=== PATIENT | female | born 1955 | race Caucasian/White ===

== ENCOUNTER 2018-03-10 22:30 | Inpatient (IN) ==
[2018-03-10] MEDS ORDERED: NS 1,000 ML IV ONE (22:53)
[2018-03-10] MEDS ORDERED: ZOFRAN IV ONE (23:24)
[2018-03-10] MEDS ORDERED: PROTONIX IV ONE (23:24)
[2018-03-10] MEDS ORDERED: SODIUM CHLORIDE 0.9% INJ ONE (23:24)
[2018-03-10 23:40] LABS: BASO# 0.17 X1000 (0.0-0.2); BASO% 1.2 % (0.0-0.8); EOS# 0.21 X1000 (0.0-0.7); EOS% 1.5 % (0.0-10.0); HEMATOCRIT 31.3 % (37.0-47.0); HEMOGLOBIN 9.8 g/dL (12.0-16.0); IMM GRAN% 0.7 % (0.0-0.5); LYMPH# 2.79 X1000 (1.2-3.4); LYMPH% 19.7 % (20.5-51.1); MCH 30.2 PG (27-31); MCHC 31.3 g/dL (33-37); MCV 96.3 FL (81-99); MONO# 0.64 X1000 (0.11-0.59); MONO% 4.5 % (1.7-9.3); MPV 10.1 FL (7.4-10.4); NEUT# 10.28 X1000 (1.4-6.5); NEUT% 72.4 % (42.2-75.2); PLT 414 X1000 (130-400); RBC 3.25 XMIL (4.2-5.4); RDW 14.9 % (11.5-14.5); WBC 14.19 X1000 (4.8-10.8)
[2018-03-10 23:48] LABS: INR 1.02; PROTIME 14.2 Seconds (11.0-16.0)
[2018-03-10 23:57] LABS: AGAP 16; ALB/GLOB RATIO 1.9; ALBUMIN 3.7 g/dL (3.5-5.0); ALKALINE PHOSPHATASE 66 U/L (32-104); BUN 35 mg/dL (8-22); CALCIUM 9.1 mg/dL (8.8-10.2); CHLORIDE 103 mmol/L (98-107); COSMO 291; ESTIMATED GFR 56; GLUCOSE 168 mg/dL (70-104); GOT 10 U/L (10-30); GPT 5 U/L (10-36); POTASSIUM 4.3 mmol/L (3.5-5.1); SODIUM 140 mmol/L (136-145); TCO2 21 mmol/L (25-35); TOTAL BILIRUBIN < 0.15 mg/dL (0.20-1.00); TOTAL PROTEIN 5.7 g/dL (6.3-8.3)
[2018-03-11] MEDS ORDERED: NS 1,000 ML IV ONE (00:57)
[2018-03-11] MEDS ORDERED: FENTANYL IV ONE (01:31)
[2018-03-11] MEDS ORDERED: PROTONIX 80 MG in NS 80 ML IV ONE (01:58)
[2018-03-11] MEDS ORDERED: MORPHINE IV PRN (01:59)
[2018-03-11] MEDS ORDERED: NS 1,000 ML IV SCH ×2 (02:00→14:15)
[2018-03-11 02:40] LABS: URINE SOURCE CLEAN CATCH
[2018-03-11] MEDS: PROTONIX 80 MG in NS 80 ML IV SCH ×2 (02:40→03:41)
[2018-03-11 02:43] LABS: BILIRUBIN URINE NEGATIVE (NEGATIVE); BLOOD URINE SMALL (NEGATIVE); COLOR YELLOW; GLUCOSE URINE NEGATIVE (NEGATIVE); KETONE URINE 10 mg/dL (NEGATIVE); LEUKOCYTES URINE NEGATIVE (NEGATIVE); NITRITE URINE NEGATIVE (NEGATIVE); PROTEIN URINE TRACE mg/dL (NEGATIVE); SP GRAVITY URINE > 1.050; TURBIDITY URINE CLEAR (CLEAR); UR EPITHELIAL CELLS <10 /HPF (<10); URINE BACTERIA NEGATIVE /HPF; URINE RBC <10 /HPF (<10); URINE WBC <10 /HPF (<10); UROBILINOGEN URINE NORMAL (NORMAL)
--- NOTE | 2018-03-11 02:56 | HISTORY AND PHYSICAL ---
PRESENTING COMPLAINT: Vomiting blood. HISTORY OF PRESENTING COMPLAINT: Ms. Valentin is a 62-year-old, female who is medically disabled because of severe scoliosis and chronic pain, also dyslipidemia. Follows up with Dr. Cliff Prakash. The patient refers that for the past week, she has been having some nausea and vomiting associated with right-sided abdominal pain. She went to [facility] where she was told that she had some kidney stones. She had some small kidney stones. She was given Septra and pain medication, and sent home. According to Ms. Valentin, the pain has been better but every now and then, she continues to have some nausea and vomiting. In any case, yesterday, she went to use the restroom and she felt a sharp pain in the abdomen, more so to the right side, right flank. She thought it was all related to the kidney stone. However, after she passed the stool, she saw that the content was dark, tarry black stool. She called her who came to help her to go and sit down. She felt extremely weak. Then she started vomiting some dark coffee-grounds as well. She came to the emergency department where she was evaluated. She vomited one more here in the emergency room and it was documented to be dark coffee-grounds. Upon presentation, the patient's vitals, blood pressure was 109/73, pulse was about 120, respirations are 18. We were consulted for GI bleed for admission. PAST MEDICAL HISTORY: 1. Severe scoliosis. 2. Chronic pain syndrome. 3. Anxiety. 4. Dyslipidemia. PAST SURGICAL HISTORY: 1. Two surgeries. 2. Benign cyst removed from the chin. SOCIAL HISTORY: The patient is positive for more than 30 year pack history of tobacco use. Denied alcohol or illicit drug use. Patient lives with and is currently disabled. FAMILY HISTORY: Positive for myocardial infarction in both mother's and father's side. ALLERGIES: None. HOME MEDICATIONS: The patient's home medications have also been reviewed. She is on: 1. Simvastatin 40 mg p.o. at bedtime. 2. Paroxetine 20 mg daily. 3. Carisoprodol 350 p.o. daily. 4. Ivins 5 mg q.6 hourly p.r.n. 5. Bactrim. REVIEW OF SYSTEMS: A 14 point review of systems was conducted with Ms. Valentin and is unremarkable except what we have in the HPI. Specifically, Ms. Valentin denies any chest pain. No shortness of breath. No fever. PHYSICAL EXAMINATION: CURRENT VITAL SIGNS: Blood pressure is 125/87, pulse is 130, respirations are 25, temperature is 98.1 degrees, patient was saturating 96%. GENERAL: Ms. Valentin is a 62-year-old, female. She was in bed. She seems to be in mild painful distress. HEENT: Mucosa is pink and moist. Anicteric. Acyanotic. NECK: Supple. There was no JVD. No carotid bruit. Trachea was midline. There is no thyromegaly. RESPIRATORY SYSTEM: There is good air entry bilaterally. No crepitations. No rhonchi. There is no accessory muscle use. CARDIOVASCULAR: Tachycardic but no murmurs, no rubs, no gallops. [place]opy beat is at 5th intercostal space, midclavicular line. GI: Abdomen is soft. It is tender in the mid epigastrium. There was no rebound tenderness. There is an old infraumbilical surgical scar. Bowel sounds are present. : Unremarkable. EXTREMITIES: No pedal edema. Distal pulses present. 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 Executive function seems to be fairly intact. The patient is able to move all extremities. Power is 5/5. No sensation deficit. Cranial nerves 2- 12 have been grossly examined and unremarkable. Head is normocephalic and atraumatic. LABORATORY DATA: WBC is 14.19, hemoglobin is 9.8, platelet count of 414,000. Sodium is 140, potassium is 4.3, chloride is 103, bicarb is 21, creatinine is 1.0, BUN is 35. Preliminary report on the CT scan shows no acute process. ASSESSMENT: 1. Coffee-grounds emesis with melenic stool, consistent with gastrointestinal bleed, unsure of the etiology. We are going to admit the patient, adequately hydrate her, follow her hemoglobin and hematocrit, group and crossmatch and transfuse when necessary. Put the patient on a proton pump inhibitor drip for now and get a gastroenterology consult to see her in the morning. 2. Recently treated urinary tract infection. Patient is currently not having any symptoms. I would rather hold off on antibiotics for now. 3. Clinical volume depletion. We will continue adequate hydration. 4. History of severe scoliosis, noted. 5. Chronic pain syndrome. We will start the patient on her home medications. 6. Dyslipidemia, noted. PLAN: In general, Ms. Valentin is going to be admitted mainly for a GI bleed. She is going to be grouped and crossmatched. Adequately hydrate. Transfuse when necessary. We are going to follow her hemoglobin and hematocrit. Put a PPI drip on her and consult GI. We will await for the official report on the CT scan and give further recommendations during the hospital course. cc: Anthony Mirza MD
[2018-03-11 03:20] LABS: HEMATOCRIT 24.7 % (37.0-47.0); HEMOGLOBIN 7.6 g/dL (12.0-16.0)
--- NOTE | 2018-03-11 06:56 | Diag Imaging Result Doc PS360 ---
CT ABD/PELVIS W/IV CONT ONLY - 03/10/2018 INDICATION: appendicitis, colitis COMPARISON: None FINDINGS: There is rather severe patient motion artifact. The lung bases are clear and the heart size is normal. There is severe rotary scoliosis and dextroscoliosis of the spine. There is severe degeneration throughout the spine. No bowel obstruction or inflammation. No free air or free fluid. There are bilateral renal cysts. Otherwise solid organs are normal. There is moderately extensive vascular disease of the aorta and its pelvic branches. Urinary bladder, uterus, and rectum are normal. IMPRESSION: No acute process. This exam was performed using automated exposure control, adjustment of mA or kV according to patient size, and/or use of iterative reconstruction technique Electronically signed by Luca Wen 03/11/2018 6:54 AM
[2018-03-11 08:27] LABS: HEMATOCRIT 31.9 % (37.0-47.0); HEMOGLOBIN 9.9 g/dL (12.0-16.0)
[2018-03-11] MEDS: ZOFRAN IV PRN ×2 (08:27→10:56)
[2018-03-11] MEDS ORDERED: XYLOCAINE-MPF 2% ONE (09:27)
[2018-03-11] MEDS ORDERED: DIPRIVAN 1% ONE ×2 (09:27→09:42)
[2018-03-11] MEDS: ATROVENT NEB INH SCH ×5 (09:33→23:55)
[2018-03-11] MEDS ORDERED: EPINEPHRINE SYRINGE ONE (09:42)
[2018-03-11] MEDS ORDERED: FENTANYL ONE (09:55)
--- NOTE | 2018-03-11 10:11 | GASTROENTEROLOGY CONSULTATION ---
DATE: 03/11/2018 REASON FOR CONSULTATION: Hematemesis with coffee ground emesis, melena. HISTORY OF PRESENT ILLNESS: Ms. Lelo Valentin is a 62-year-old woman with a history of severe scoliosis and chronic cervical and back pain, hyperlipidemia and GERD who presents with 1 day history of coffee ground emesis and melenic stools. The patient reports developing nausea about a week ago as well as constipation and right-sided abdominal pain. She was seen in the ER in [place], diagnosed with kidney stones, and discharged lomotil, zofran, and on a course of Bactrim. Over the last 2 days, she had worsening of her right-sided abdominal pain that she described as being severe. Yesterday, she developed a stool that she describes as being "grape colored in nature" and began vomiting coffee grounds. She denies a history of similar symptoms. She is not currently on any blood thinners although she takes Goody powders regularly to control her headaches associated with her pain medication. No prior EGD or colonoscopy. She takes Prilosec a couple of times a week for GERD. REVIEW OF SYSTEMS: As per HPI. Twelve point review of systems was otherwise negative. PAST MEDICAL HISTORY: 1. Scoliosis. 2. Hyperlipidemia. 3. GERD. 4. Chronic cervical and back pain. PAST SURGICAL HISTORY: 1. Right femur repair in 2018. 2. She has had 2 C-sections in the past. FAMILY HISTORY: She reports that her grandmother and mother both have stomach issues. SOCIAL HISTORY: She is a 1/2 pack per day smoker. No alcohol or drug use. MEDICATIONS: 1. [place]. 2. Zofran. 3. Simvastatin. 4. Paxil. 5. Soma. 6. Bactrim. 7. Lomotil. ALLERGIES: Morphine. PHYSICAL EXAMINATION: VITAL SIGNS: Temperature 99.3 degrees, heart rate 112, respiratory rate 22, blood pressure 98/72. O2 saturation 94% on room air. GENERAL: The patient is awake, alert, oriented, no acute distress. Appears older than stated age. HEENT: Sclerae anicteric. Moist mucous membranes. NECK: No JVD. No lymphadenopathy. CARDIAC: Tachycardic, regular, no murmurs. LUNGS: Clear to auscultation bilaterally. No wheezing or crackles. ABDOMEN: Nondistended. Bowel sounds present. Tender to palpation along the right side of her abdomen that is moderate in nature. No rebound or guarding. No ascites. EXTREMITIES: No clubbing, cyanosis or edema. NEUROLOGICAL: Nonfocal. PSYCHIATRIC: Normal affect. LABS: White count 14.1, hemoglobin of 7.6 that has come up to 9.9 after 2 units of packed red blood cells. Platelets of 414,000. INR of 1. Sodium 140, potassium 4.3, chloride 103, bicarb 24, BUN 35, creatinine 1.0, glucose 168. Albumin 3.7. Total bilirubin of less than 0.15. AST 10, ALT 5, alkaline phosphatase 66. UA shows ketones and a small amount of blood and protein. IMAGING: CT abdomen and pelvis with IV contrast only was unremarkable. ASSESSMENT AND PLAN: Ms. Valentin is a 62-year-old woman with a history of scoliosis and chronic pain who presents with coffee ground emesis and melena consistent with upper GI bleeding in the setting of chronic aspirin use. Her hemoglobin responded to transfusion and she is currently on a PPI drip. She is tachycardic but normotensive. Her labs are notable for a hemoglobin of 9.9 after transfusion, elevated BUN to creatinine ratio. CT abdomen and pelvis was unremarkable. 1. Upper GI bleed, suspect duodenal ulcer. Differential includes duodenitis, esophagitis, gastritis. Keep patient NPO for diagnostic EGD today. Continue PPI drip for now. Maintain 2 large bore IVs. Continue fluid resuscitation. 2. Abdominal pain. Patient recently diagnosed with UTI as well as kidney stones. I suspect her abdominal pain is likely from her GI process since UA was negative for infection. She does have some leukocytosis which could be reactive in the setting of GI bleed. 3. Hyperglycemia. Patient has no known history of diabetes. Recommend checking A1c and putting patient on sliding scale insulin. 4. DVT prophylaxis. TEDs and SCDs. Hold SQ Lovenox or heparin. Thank you for this consult. We will follow with you. Please call with any questions or concerns. [facility] HOSPITALMelisa
--- NOTE | 2018-03-11 10:20 | PROGRESS NOTE ---
DATE: 03/11/2018 INTERVAL HISTORY: Ms. Valentin was admitted overnight with complaints of hematemesis, melena, nausea and vomiting for 7 days duration, with right upper quadrant pain, recent diagnosis of urinary tract infection treated with Bactrim, and recent diagnosis of nephrolithiasis. In the emergency room, she had another episode of hematemesis with gastric and stool occult blood test being positive. She was found to be extremely tachycardic and dehydrated, and started on Protonix drip. SUBJECTIVE: She is feeling fair. She continues to have nausea and wants nausea medication. She states occasionally she might take a Goody Powder or Aleve. She might have taken about 2 tablets of that over the last week or so, but denies using NSAIDs on an [id number] basis. She also admits to smoking about a half pack a day. Denies drinking alcohol. Denies prior history of peptic ulcer disease. OBJECTIVE: Vital Signs: Currently, vitals with pulse 112, respiratory rate 22, blood pressure 98/72, temperature 99.3, saturating 95% on room air. General: Appears in mild distress. HEENT: Oral cavity has poor dentition. Lungs: Air entry bilaterally equal. No wheeze, rhonchi, or crackles. Heart: S1, S2 tachycardic. No murmur, rub, or gallop. Abdomen: Soft. Tenderness in the epigastric/right upper quadrant region. Active bowel sounds. Extremities: No lower extremity edema. Dryness of the skin. Neurologic: She appears tremulous, but alert and oriented x3. LABORATORY DATA: Labs suggestive of leukocytosis. Hemoglobin dropped from 9.8 to 7.6, which after 2 PRBCs increased to 9.9 again. Normal coagulation. Acute kidney injury. Hyperglycemia. IMAGING: Abdomen and pelvis CT did not detect any intra-abdominal free air or nephrolithiasis. ASSESSMENT AND PLAN: 1. Hematemesis and melena, likely due to upper gastrointestinal bleed. Differential includes esophageal tear because of persistent nausea and vomiting, because of nephrolithiasis versus peptic ulcer disease. She is a smoker, which is a risk factor of peptic ulcer disease. She denies alcohol use and she only occasionally uses nonsteroidal anti-inflammatory drugs. Continue intravenous fluid resuscitation and pantoprazole drip. Follow up Gastroenterology recommendation and consult regarding need for esophagogastroduodenoscopy considering she continues to have drop in her hemoglobin. Follow up with frequent CBC and transfuse to maintain hemoglobin more than 7. 2. Acute blood-loss anemia. She is now status post 2 units of packed red blood cells. Monitor CBC q.6 to q.8 hours. Transfuse to goal of more than 7. 3. Leukocytosis, likely reactive in the setting of blood loss. Monitor CBC daily. No need of antibiotics. 4. Acute kidney injury, likely because of volume depletion and prerenal cause. Continue intravenous fluids. Follow up BMP tomorrow. 5. Recently treated urinary tract infection with repeat urinalysis that does not suggest pyuria. 6. History of severe scoliosis and chronic pain syndrome. Continue patient on morphine intravenous as needed and will restart other home medications as necessary. 7. History of dyslipidemia. I will resume her simvastatin. 8. Others. I will resume her paroxetine and muscle relaxant, carisoprodol and hydrocodone/acetaminophen as tolerated. DISPOSITION: The patient remains inside the hospital for need for upper endoscopy for hematemesis. Plan of care was discussed with the patient and her at bedside, who is the surrogate decision-maker. All of their questions have been answered. cc: Mayo Liang MD
--- NOTE | 2018-03-11 10:29 | OPERATIVE NOTE ---
PROCEDURE DATE : 03/11/2018 PROCEDURE: Upper gastrointestinal endoscopy. PROVIDER: Nghia Mckenna MD. INDICATIONS: Hematemesis, melena, upper GI bleeding. DESCRIPTION OF PROCEDURE: Prior to the procedure, a history and physical was performed, and patient's medications and allergies were reviewed. The patient's tolerance to previous anesthesia was also reviewed. The risks and benefits of the procedure and the sedation options and risks were discussed with the patient. All questions were answered and informed consent was obtained. After reviewing the risks and benefits, the patient was deemed to be in satisfactory condition to undergo the procedure. After informed consent was obtained, the endoscope was passed under direct visualization. Throughout the procedure, the patient's blood pressure, pulse, and oxygen saturations were monitored continuously. The endoscope was introduced through the mouth and advanced to the second part of the duodenum. The upper GI endoscopy was accomplished without difficulty. The patient tolerated the procedure well. COMPLICATIONS: No immediate complications. ESTIMATED BLOOD LOSS: Minimal. FINDINGS: There was a nonobstructing Schatzki ring found at the distal esophagus, as well as a small hiatal hernia. Stomach revealed two 5 mm cratered ulcers that were clean base in the antrum. Random gastric biopsies were performed to rule out H. pylori. In the distal duodenum, there were two 1.5 cm cratered ulcers. One was clean base anteriorly. The other revealed a pigmented spot with minimal oozing of blood on the posterior wall. Two milliliters of epinephrine diluted 1:10,000 was injected submucosally with good blanching of the mucosa. Monopolar probe cautery was applied to the spot to control bleeding. There was no bleeding at the end of the procedure. IMPRESSION: 1. Nonobstructing Schatzki ring. 2. Small hiatal hernia. 3. Gastric antral ulcers. 4. Duodenal ulcers. 5. Her upper GI bleed and peptic ulcer disease are likely secondary to chronic NSAID use. RECOMMENDATIONS: 1. Transition PPI drip to pantoprazole 40 mg IV twice a day. 2. Start patient on clear liquid diet. 3. Continue to trend hemoglobin and hematocrit q.6-8 h. Transfuse as needed to maintain a hemoglobin to 7 to 8. 4. Avoid all NSAIDs, blood thinners, and subcutaneous heparin/Lovenox. 5. Await pathology results 6. The patient will need a repeat EGD in 2 months to assess ulcer healing. We will follow with you. Please call with any questions or concerns. MTDD
[2018-03-11] MEDS: PROTONIX IV SCH ×2 (10:38→22:09)
[2018-03-11] MEDS: NORCO-5 PO PRN ×3 (11:18→22:51)
[2018-03-11 14:32] LABS: HEMATOCRIT 27.7 % (37.0-47.0); HEMOGLOBIN 8.8 g/dL (12.0-16.0)
[2018-03-11 20:32] LABS: HEMATOCRIT 27.5 % (37.0-47.0); HEMOGLOBIN 8.7 g/dL (12.0-16.0)
[2018-03-11] MEDS: ZOCOR PO SCH (20:47)
[2018-03-12] MEDS: ATROVENT NEB INH SCH ×6 (03:35→23:40)
[2018-03-12] MEDS: NORCO-5 PO PRN ×4 (05:00→23:31)
[2018-03-12 05:26] LABS: INR 1.06; PROTIME 14.7 Seconds (11.0-16.0)
[2018-03-12 05:49] LABS: AGAP 9; ALB/GLOB RATIO 1.9; ALBUMIN 2.8 g/dL (3.5-5.0); ALKALINE PHOSPHATASE 47 U/L (32-104); BUN 11 mg/dL (8-22); CHLORIDE 108 mmol/L (98-107); COSMO 279; CREATININE 0.5 mg/dL (0.5-0.9); ESTIMATED GFR > 60; GLUCOSE 110 mg/dL (70-104); GOT 8 U/L (10-30); GPT < 5 U/L (10-36); MAGNESIUM 1.6 mg/dL (1.5-2.7); POTASSIUM 3.2 mmol/L (3.5-5.1); SODIUM 140 mmol/L (136-145); TCO2 23 mmol/L (25-35); TOTAL PROTEIN 4.3 g/dL (6.3-8.3)
[2018-03-12 06:25] LABS: BASO# 0.04 X1000 (0.0-0.2); BASO% 0.6 % (0.0-0.8); EOS# 0.09 X1000 (0.0-0.7); EOS% 1.3 % (0.0-10.0); HEMATOCRIT 25.2 % (37.0-47.0); HEMOGLOBIN 7.8 g/dL (12.0-16.0); IMM GRAN# 0.02 X1000 (0.0-0.04); IMM GRAN% 0.3 % (0.0-0.5); LYMPH# 2.34 X1000 (1.2-3.4); LYMPH% 33.1 % (20.5-51.1); MCH 29.2 PG (27-31); MCV 94.4 FL (81-99); MONO# 0.43 X1000 (0.11-0.59); MONO% 6.1 % (1.7-9.3); MPV 9.5 FL (7.4-10.4); NEUT# 4.14 X1000 (1.4-6.5); NEUT% 58.6 % (42.2-75.2); PLT 220 X1000 (130-400); RBC 2.67 XMIL (4.2-5.4); RDW 15.7 % (11.5-14.5); WBC 7.06 X1000 (4.8-10.8)
[2018-03-12] MEDS: PROTONIX IV SCH ×2 (09:47→20:07)
[2018-03-12] MEDS: CENTRUM SILVER PO SCH (09:48)
[2018-03-12] MEDS: ICAR-C PO SCH ×2 (09:48→20:07)
[2018-03-12] MEDS ORDERED: POTASSIUM CHLORIDE 20% LIQUID PO ONE (10:07)
[2018-03-12] MEDS ORDERED: SOMA PO PRN (10:36)
[2018-03-12] MEDS: PAXIL PO SCH (11:11)
[2018-03-12] MEDS: ZOFRAN IV PRN (12:14)
[2018-03-12 12:28] LABS: HEMATOCRIT 28.8 % (37.0-47.0); HEMOGLOBIN 9.1 g/dL (12.0-16.0)
--- NOTE | 2018-03-12 13:36 | GASTROENTEROLOGY PROGRESS NOTE ---
DATE: 03/12/2018 SUBJECTIVE: Resting in bed. She has been having some dark stools overnight 2 small bouts of dark stools per the patient and family. The patient had an EGD done per Dr. Mckenna which showed evidence of nonobstructing Schatzki ring, small hiatal hernia, gastric antral ulcers, duodenal ulcers. The patient has a history of chronic NSAID abuse. She continues on PPIs. OBJECTIVE: Vital signs: Temperature 98.3 degrees, pulse of 98, respiratory rate 16, blood pressure 115/57. Saturating 92% on room air. Body weight of 130 pounds. BMI 22.3 kg. General: Thinly built, lying in bed, in no acute distress. HEENT: Pale conjunctiva. No icterus. Pupils equal, reactive to light. Neck: Supple. Abdomen: Discomfort in the epigastrium. No rebound or guarding. Extremities: No cyanosis, clubbing. Neurologic: She is alert, awake, oriented x3. LABS: Hemoglobin and hematocrit is 7.8, 25.2, white count of 7.06, platelet count of 220,000. Sodium 140, potassium 3.2 chloride 108, bicarb 23, anion gap 9, BUN of 11, creatinine 0.5, glucose 110, calcium is 8, magnesium 1.6. Total bilirubin is 0.2, AST 8, ALT less than 5, alkaline phosphatase 47, total protein 4.3, albumin of 2.8. INR 1.06. PT of 14.7. Lactate of 0.6. Her blood cultures were drawn yesterday. They are currently pending. Her gastric biopsies are currently pending. IMPRESSION AND PLAN: 1. Gastric antral ulcer, duodenal ulcers likely cause of gastrointestinal bleeding. We will keep her on proton pump inhibitors b.i.d. We will also start on Carafate 1 g 6 hours. 2. The patient was instructed to avoid any NSAIDs. 3. Anemia. We will start her on iron C b.i.d., multivitamin once daily. 4. We will follow her hematocrit and transfuse as needed. 5. We will keep her on clear liquid diet for now until hematocrit stabilizes. 6. Chronic smoker. The patient is counseled to quit smoking completely. Above plan discussed with the patient and family and all questions answered. Please call us with any further questions. cc: MD TEQUILA Wong
[2018-03-12] MEDS: CARAFATE LIQUID PO SCH ×2 (14:09→20:07)
--- NOTE | 2018-03-12 14:21 | PROGRESS NOTE ---
DATE: 03/12/2018 SUBJECTIVE: This patient states that she is feeling a little bit better but she is complaining of back pain which is not new. Her potassium level is low and I will replace it. I will monitor hemoglobin and hematocrit every 6 hours. She is status post upper endoscopy. Will continue following the automatic silk screen printer's recommendations. OBJECTIVE: Vital Signs: Temperature 98.4 degrees, pulse 74, respiratory rate 18, blood pressure 160/66, oxygen saturation 97% on room air. HEENT: Head normocephalic. No trauma. PERRLA. Neck: Supple. No JVD. No masses. Central trachea. Chest: Clear to auscultation. No wheezing. No rales. Abdomen: Soft. Some tenderness to palpation at the level of the periumbilical area and epigastric area. Positive bowel sounds. Extremities: No edema. No clubbing. No cyanosis. Neurological: The patient is alert and oriented x3. No focal deficits. LABORATORY: WBC 7, hemoglobin 9.1, hematocrit 28.8, platelets 220,000. Sodium 140, potassium 3.2, chloride 108, bicarbonate 23, BUN 11, creatinine 0.5, glucose 110, calcium 8, albumin 2.8. ASSESSMENT AND PLAN: 1. Upper gastrointestinal bleed, likely secondary to gastric antral ulcers and duodenal ulcers which we believe is probably due to her chronic NSAID use. Also upper endoscopy showed a nonobstructing Schatzki ring, small hiatal hernia. Will continue with PPI twice a day. Continue with liquid diet. Continue monitoring the hemoglobin and hematocrit. We will avoid NSAIDs, anticoagulation. Likely this patient will need to repeat the EGD in 2 months to evaluate the gastric ulcer progression and healing. 2. Acute blood loss anemia. So far this patient received 2 units of PRBCs. Hemoglobin at this moment is 9.1. We will continue to monitor closely, every 6 hours. 3. Acute kidney injury. Resolved. 4. Recently treated due to urinary tract infection. No symptoms at this moment. 5. History of severe scoliosis and chronic pain syndrome. Continue with home medications. 6. History of dyslipidemia. Continue with simvastatin. cc: Melvin Gonzalez MD
[2018-03-12 18:03] LABS: HEMATOCRIT 28.2 % (37.0-47.0); HEMOGLOBIN 8.8 g/dL (12.0-16.0)
[2018-03-12] MEDS: ZOCOR PO SCH (20:07)
[2018-03-12] MEDS ORDERED: AMBIEN PO SCH (21:00)
[2018-03-13 00:48] LABS: HEMATOCRIT 26.7 % (37.0-47.0); HEMOGLOBIN 8.4 g/dL (12.0-16.0)
[2018-03-13] MEDS: ATROVENT NEB INH SCH ×3 (03:35→11:12)
[2018-03-13] MEDS: CARAFATE LIQUID PO SCH ×3 (03:59→14:01)
[2018-03-13] MEDS: NORCO-5 PO PRN ×2 (05:32→11:36)
[2018-03-13 06:05] LABS: BASO# 0.06 X1000 (0.0-0.2); BASO% 1.3 % (0.0-0.8); EOS# 0.14 X1000 (0.0-0.7); HEMATOCRIT 26.5 % (37.0-47.0); HEMOGLOBIN 8.2 g/dL (12.0-16.0); LYMPH# 1.72 X1000 (1.2-3.4); LYMPH% 36.4 % (20.5-51.1); MCH 29.5 PG (27-31); MCHC 30.9 g/dL (33-37); MCV 95.3 FL (81-99); MONO# 0.37 X1000 (0.11-0.59); MONO% 7.8 % (1.7-9.3); MPV 9.5 FL (7.4-10.4); NEUT# 2.43 X1000 (1.4-6.5); NEUT% 51.5 % (42.2-75.2); PLT 244 X1000 (130-400); RBC 2.78 XMIL (4.2-5.4); RDW 15.5 % (11.5-14.5); WBC 4.72 X1000 (4.8-10.8)
[2018-03-13 06:59] LABS: AGAP 9; BUN 5 mg/dL (8-22); CALCIUM 8.1 mg/dL (8.8-10.2); CHLORIDE 105 mmol/L (98-107); COSMO 281; CREATININE 0.5 mg/dL (0.5-0.9); ESTIMATED GFR > 60; GLUCOSE 103 mg/dL (70-104); POTASSIUM 3.6 mmol/L (3.5-5.1); SODIUM 142 mmol/L (136-145); TCO2 28 mmol/L (25-35)
[2018-03-13] MEDS: ICAR-C PO SCH (08:42)
[2018-03-13] MEDS: CENTRUM SILVER PO SCH (08:42)
[2018-03-13] MEDS: PAXIL PO SCH (08:42)
[2018-03-13] MEDS: PROTONIX IV SCH (08:42)
--- NOTE | 2018-03-13 10:58 | PROGRESS NOTE ---
DATE: 03/13/2018 SUBJECTIVE: The patient has no new complaints today. Hemoglobin around 8.2; decreased a little bit compared with yesterday. OBJECTIVE: Vital Signs: Temperature 98, pulse 95, respiratory rate 15, blood pressure 105/49, oxygen saturation 96% on room air. HEENT: Head normocephalic, no trauma. PERRLA. Neck: Supple. No JVD. No masses. Central trachea. Chest clear to auscultation. No wheezing. No rales. Abdomen soft, nontender, nondistended. No hepatosplenomegaly. Extremities: No edema. No clubbing. No cyanosis. Neurologic: The patient is alert and oriented x3. No focal deficits. LABORATORY: WBC 4.7, hemoglobin 8.2, hematocrit 26.5, platelets 244,000. Sodium 142, potassium 3.6, chloride 105, bicarbonate 28. BUN 5, creatinine 0.5, glucose 103. Calcium 8.1. ASSESSMENT AND PLAN: 1. Upper gastrointestinal bleed likely secondary to gastric antral ulcer and duodenal ulcers which we believe is probably due to her chronic nonsteroidal anti-inflammatory drug. Also, upper endoscopy showed a nonobstructing Schatzki ring, a small hiatal hernia. We will continue with PPIs twice a day. Continue with her liquid diet which probably will be advanced by the Gastroenterology Department. Continue to monitor hemoglobin and hematocrit. We will avoid nonsteroidal anti-inflammatory drug, anticoagulation. Likely, this patient will need to repeat an esophagogastroduodenoscopy in 2 months to evaluate the gastric ulcer progression and healing. 2. Acute blood loss anemia. So far, the patient received 2 PRBCs. Hemoglobin has been stable. Decrease a little bit compared with yesterday but will monitor these every 6 hours. 3. Acute kidney injury, resolved. 4. Recently treated due to urinary tract infection. No symptoms at this moment. 5. History of severe scoliosis and chronic pain syndrome. Continue with home medications. 6. History of dyslipidemia. Continue with simvastatin. cc: Melvin Gonzalez MD
[2018-03-13 13:09] LABS: HEMATOCRIT 27.8 % (37.0-47.0); HEMOGLOBIN 8.5 g/dL (12.0-16.0)
[2018-03-13 16:31] VITALS: BP 136/97
[2018-03-14] MEDS ORDERED: PROTONIX IV SCH (01:58)
--- NOTE | 2018-03-15 00:04 | DISCHARGE SUMMARY ---
ADMISSION DATE: 03/11/2018 DISCHARGE DATE: 03/13/2018 DISCHARGE DIAGNOSIS: 1. Upper gastrointestinal bleed likely secondary to gastric antral ulcer and duodenal ulcer is status post endoscopy. 2. Acute blood loss anemia. 3. Acute kidney injury, resolved. 4. Recently treated due to urinary tract infection. 5. History of severe scoliosis and chronic pain syndrome. 6. History of hyperlipidemia. HOSPITAL COURSE: 62-year-old female who is medically disabled because of severe scoliosis and chronic pain, dyslipidemia, anxiety admitted on 03/11/2018, apparently as per the patient for the past week prior to admission she was having nausea and vomiting as stated with right-sided abdominal pain. She went to [facility] where she was told that she had some kidney stones. She was given pain medication and then she was sent home. As per the patient, she was a little bit better but she continued to have some nausea and vomiting so the day before of admission she went to the restroom she started having sharp pain in the abdomen more so to the right side, right flank and she thought that was related to the kidney stone however after she passed the stool she saw that it was really dark tarry black stool then she started vomiting some dark coffee-ground material as well. So she came to emergency department were she was evaluated, on presentation the patient's vital signs blood pressure was 109/73 and the pulse was around 120. Gastroenterology Department was consulted and they decided to do a upper endoscopy that showed a known obstructing Schatzki ring, small hiatal hernia, gastric antral ulcers and duodenal ulcer, the upper GI bleed and ulcer disease were likely related to chronic NSAID use. Apparently she has been using also a lot of BC powders on a daily basis, they have recommended to continue PPIs twice a day, Carafate, continue liquid diet. monitor the hemoglobin and avoid NSAIDs and blood thinners, she will need to do and repeat an EGD in 2 months to evaluate again the ulcer healing especially the 1 in the stomach, the hemoglobin and hematocrit were stable. She was tolerating p.o. No more nausea or vomiting so we have decided to discharge this patient with a strict follow up by Gastroenterology Department, she needs to follow up with Dr. Herman in 3 weeks and this patient needs to get upper endoscopy done again to evaluate her gastric and duodenal ulcers. Vital signs: Temperature 98.3 degrees, pulse 97 , respiratory rate 15, blood pressure 136/97, oxygen saturation 95 on room air. HEENT: Head normocephalic. No trauma. PERRLA. Neck: Supple. No JVD. No masses. Central trachea. Chest: Clear to auscultation. No wheezing, no rales. Abdomen: Soft. Mild tenderness to palpation at the level of the epigastric area. Extremities: No edema, no clubbing, no cyanosis. Neurological: The patient is alert and oriented x3. No focal deficits. LABORATORY: WBC 4.7, hemoglobin 8.5, hematocrit 27.8, sodium 142, potassium 3.6, chloride 105, bicarbonate 28, BUN 5, creatinine 0.5, glucose 103, calcium 8.1. DISCHARGE MEDICATIONS: Simvastatin 40 mg p.o. at bedtime, paroxetine 20 mg p.o. daily, [place] 5 one tablet p.o. q.6 hours as needed, 250 mg p.o. daily, Ambien 5 mg p.o. at bedtime as needed, Carafate 1 g p.o. before meals and before bed, Pantoprazole 40 mg p.o. b.i.d., Centrum Silver 1 tablet p.o. daily and Icar-C 1 tab p.o. b.i.d. TIME SPENT: 35 minutes. cc: Melvin Gonzalez MD MTDD
== END 2018-03-13 17:29 | disposition home or self-care (01) | DRG 378 ==
LOC: ED 22:30 → EDIPHOLD 03-11 03:18 → SUATTDRO 03-11 03:18 → 3S 03-11 20:07
PROVIDERS: ATTEND Internal Medicine
CPT/HCPCS: 36430; 74177; 80048; 80053; 81001; 82270; 82271; 82948; 83605; 83735; 84443; 85014; 85018; 85025; 85610; 86850; 86900; 86901; 86920; 87040; 88305; 88312; 93005; 94640; 94760; 94761; 96374; 96375; 96376; 97110; 97162; 99285; A9270; C9113; J0171; J2270; J2405; J3010; J7030; P9016; Q9967; S0164; XXXXX

== ENCOUNTER 2019-01-26 09:09 | Inpatient (IN) ==
[2019-01-26] MEDS ORDERED: NARCAN IV ONE (09:17)
[2019-01-26] MEDS ORDERED: NS 1,000 ML IV ONE ×2 (09:17→09:37)
[2019-01-26] MEDS ORDERED: THIAMINE 100 MG in NS 50 ML IV ONE (09:17)
[2019-01-26] MEDS ORDERED: QUELICIN IV ONE (09:27)
[2019-01-26] MEDS ORDERED: AMIDATE IV ONE (09:27)
[2019-01-26] MEDS ORDERED: AMIDATE ONE (09:30)
[2019-01-26] MEDS ORDERED: QUELICIN ONE (09:31)
--- NOTE | 2019-01-26 09:31 | Diag Imaging Result Doc PS360 ---
CHEST-PORTABLE - 01/26/2019 INDICATION: stroke like symptoms COMPARISON: 02/23/2013 FINDINGS: There is some faint linear atelectasis or infiltrate in the lateral right lung base. Heart size is normal. No pneumothorax or pleural effusion. IMPRESSION: Faint nonspecific infiltrate or atelectasis in the lateral right lung base. Electronically signed by Luca Wen 01/26/2019 9:28 AM
[2019-01-26] MEDS ORDERED: ZOSYN 4.5 GM in NS 100 ML IV ONE (09:33)
[2019-01-26] MEDS ORDERED: VANCOMYCIN 1 GM/NS 1 GM/250 ML IVPB IV ONE (09:33)
--- NOTE | 2019-01-26 09:33 | Diag Imaging Result Doc PS360 ---
EXAM: CT HEAD W/O CONTRAST 01/26/2019 HISTORY: stroke like symptoms TECHNIQUE: This exam was performed using automated exposure control, adjustment of mA or kV according to patient size, and/or use of iterative reconstruction technique. COMMENT: The right maxillary sinus is opacified with apparent calcifications. This may indicate fungal sinusitis. The calvarium is intact. There is no evidence of intracranial mass effect, bleed, or abnormal extra-axial fluid collection. IMPRESSION: Right maxillary sinusitis. No evidence of acute intracranial disease. Electronically signed by Oziel Arenas 01/26/2019 9:31 AM
[2019-01-26] MEDS: DIPRIVAN 1% 1,000 MG/100 ML BOTTLE IV SCH ×4 (09:40→21:31)
[2019-01-26] MEDS ORDERED: DIPRIVAN 1% 1,000 MG/100 ML BOTTLE ONE (09:40)
[2019-01-26 09:56] LABS: ALLEN TEST YES; BE -1.8 mmoll (-3.0-3.0); BLOOD TYPE ARTERIAL; HCO3-(ACT) 23.3 mmoll (20.0-26.0); METHB 0.7 % (0.0-1.5); O2(CT) 16.7 mL/dL (15.0-23.0); O2HB 90.1 % (95.0-99.0); PCO2(98.6) 42 mmHg (35-45); PO2(98.6) 58 mmHg (60-100); SAMPLE BLOOD; SAO2 91.3 % (95.0-100.0); SRATE 16 BPM; THB 13.2 g/dL (11.5-17.4); TVOL 500 mL; pH(98.6) 7.36 (7.35-7.45)
[2019-01-26 09:57] LABS: MODALITY VENTILATOR
[2019-01-26 10:04] LABS: INR 1.17; PROTIME 15.1 Seconds (11.0-16.0)
[2019-01-26 10:05] LABS: PTT 29.6 Seconds (22.3-41.8)
[2019-01-26 10:11] LABS: URINE SOURCE CATH
[2019-01-26 10:18] LABS: AGAP 18; ALBUMIN 4.7 g/dL (3.5-5.0); ALKALINE PHOSPHATASE 109 U/L (32-104); BUN 29 mg/dL (8-22); CALCIUM 8.9 mg/dL (8.8-10.2); CHLORIDE 103 mmol/L (98-107); COSMO 295; CREATININE 1.1 mg/dL (0.5-0.9); ESTIMATED GFR 50; GLUCOSE 133 mg/dL (70-104); GOT 17 U/L (10-30); GPT 8 U/L (10-36); POTASSIUM 2.9 mmol/L (3.5-5.1); SODIUM 144 mmol/L (136-145); TCO2 23 mmol/L (25-35); TOTAL BILIRUBIN < 0.15 mg/dL (0.20-1.00)
[2019-01-26 10:20] LABS: BASO# 0.06 X1000 (0.0-0.2); BASO% 0.3 % (0.0-0.8); EOS# 0.01 X1000 (0.0-0.7); HEMATOCRIT 42.4 % (37.0-47.0); HEMOGLOBIN 12.8 g/dL (12.0-16.0); IMM GRAN# 0.04 X1000 (0.0-0.04); IMM GRAN% 0.2 % (0.0-0.5); LYMPH# 0.64 X1000 (1.2-3.4); LYMPH% 3.1 % (20.5-51.1); MCH 27.1 PG (27-31); MCHC 30.2 g/dL (33-37); MCV 89.6 FL (81-99); MONO# 0.83 X1000 (0.11-0.59); NEUT% 92.4 % (42.2-75.2); PLT 365 X1000 (130-400); RBC 4.73 XMIL (4.2-5.4); RDW 16.4 % (11.5-14.5); WBC 20.78 X1000 (4.8-10.8)
--- NOTE | 2019-01-26 10:20 | Diag Imaging Result Doc PS360 ---
CHEST-1 VIEW - 01/26/2019 10:03 AM INDICATION: ETT and NGT placement COMPARISON: 9:22 AM FINDINGS: There is an endotracheal tube in good position at T3-T4. Nasogastric tube is in good position in the stomach. The lungs are clear. Heart size is normal. No pneumothorax or pleural effusion. IMPRESSION: No acute disease or complication. Electronically signed by Luca Wen 01/26/2019 10:18 AM
[2019-01-26 10:21] LABS: BILIRUBIN URINE NEGATIVE (NEGATIVE); BLOOD URINE SMALL (NEGATIVE); COLOR YELLOW; GLUCOSE URINE NEGATIVE (NEGATIVE); KETONE URINE 20 mg/dL (NEGATIVE); LEUKOCYTES URINE NEGATIVE (NEGATIVE); NITRITE URINE NEGATIVE (NEGATIVE); PH URINE 5.5; PROTEIN URINE 50 mg/dL (NEGATIVE); SP GRAVITY URINE 1.028; TURBIDITY URINE CLEAR (CLEAR); UROBILINOGEN URINE NORMAL (NORMAL)
[2019-01-26 10:25] LABS: UR EPITHELIAL CELLS <10 /HPF (<10); URINE BACTERIA NEGATIVE /HPF; URINE RBC <10 /HPF (<10); URINE WBC <10 /HPF (<10)
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
[2019-01-26 10:41] LABS: URINE YEAST NONE SEEN
[2019-01-26] MEDS ORDERED: LASIX IV ONE (11:02)
[2019-01-26 11:09] LABS: UR AMPHETAMINES QUAL NONE DETECTED (NONE DETECT); UR BARBITUATES QUAL NONE DETECTED (NONE DETECT); UR CANNABINOIDS QUAL NONE DETECTED (NONE DETECT); UR COCAINE QUAL NONE DETECTED (NONE DETECT); UR METHADONE QUAL NONE DETECTED (NONE DETECT); UR OPIATES QUAL PRESUMPTIVE POSITIVE (NONE DETECT); UR OXYCODONE QUAL NONE DETECTED (NONE DETECT); UR PCP QUAL NONE DETECTED (NONE DETECT)
--- NOTE | 2019-01-26 11:09 | EKG Report ---
Test Performed on : 01/26/2019 10:53:49 AM Test Reason : Stroke like symptoms Blood Pressure : / mmHG Vent. Rate : 093 BPM Atrial Rate : 093 BPM P-R Int : 156 ms QRS Dur : 100 ms QT Int : 430 ms P-R-T Axes : 051 049 117 degrees QTc Int : 534 ms Normal sinus rhythm. Septal infarct (cited on or before 23-FEB-2013) T wave abnormality, consider anterolateral ischemia Prolonged QT Abnormal ECG When compared with ECG of 11-SEP-2017 18:01, Nonspecific T wave abnormality now evident in Inferior leads T wave inversion now evident in Anterolateral leads Unconfirmed Result
[2019-01-26 11:25] LABS: UR BENZODIAZEPIN QUAL PRESUMPTIVE POSITIVE (NONE DETECT)
[2019-01-26] MEDS: POTASSIUM CHLORIDE 20 MEQ/SWI 20 MEQ/100 ML IVPB IV SCH ×2 (11:34→15:49)
[2019-01-26] MEDS ORDERED: VANCOMYCIN IV PER PHARMACY MISC SCH (13:13)
[2019-01-26] MEDS: NS 1,000 ML IV SCH (14:59)
[2019-01-26] MEDS: ZOSYN 3.375 GM in NS 50 ML IV SCH ×2 (15:42→21:31)
[2019-01-26] MEDS: DUONEB (A & A) INH SCH ×2 (16:11→19:06)
[2019-01-26 17:36] LABS: URINE SOURCE CLEAN CATCH
[2019-01-26 17:45] LABS: BILIRUBIN URINE NEGATIVE (NEGATIVE); BLOOD URINE MODERATE (NEGATIVE); COLOR YELLOW; GLUCOSE URINE NEGATIVE (NEGATIVE); KETONE URINE TRACE mg/dL (NEGATIVE); LEUKOCYTES URINE NEGATIVE (NEGATIVE); NITRITE URINE NEGATIVE (NEGATIVE); PROTEIN URINE TRACE mg/dL (NEGATIVE); TURBIDITY URINE CLEAR (CLEAR); UR EPITHELIAL CELLS <10 /HPF (<10); URINE BACTERIA NEGATIVE /HPF; URINE RBC 20-40 /HPF (<10); URINE WBC <10 /HPF (<10); UROBILINOGEN URINE NORMAL (NORMAL)
--- NOTE | 2019-01-26 20:24 | HISTORY AND PHYSICAL ---
PRIMARY CARE PHYSICIAN: None. CHIEF COMPLAINT: Found unresponsive in her recliner this morning by her . HISTORY OF PRESENTING ILLNESS: This is a 63-year-old female who presents to [facility] via EMS after the patient's states that the patient was last known fine when she went to sleep last night. She sleeps in a recliner in their living room, and he got up this morning and fixed her some coffee, brought it into her in the living room and noticed that she was gasping for air with very shallow respirations, would not wake up and open her eyes. He noted some thick yellow sputum coming from her mouth down onto her shirt, and so he called 911. When EMS arrived, her saturations were in the 80s initially and increased to the 90s on 100% non-rebreather en route, but she was still struggling to breathe, so she was intubated by ER physician and placed on the ventilator. Her laboratory data showed a white blood cell count of 20.78. Her potassium was 2.9. ProBNP was 1255. Her chest x-ray showed faint nonspecific infiltrate or atelectasis at the lateral right lung base that is most likely an aspiration pneumonia, and a repeat chest x-ray to verify her ET tube placement and NG tube that are both in the appropriate position. She was placed on a propofol drip and will be admitted for further evaluation and treatment. PAST MEDICAL HISTORY: 1. Severe scoliosis. 2. Chronic pain syndrome. 3. Anxiety. 4. Dyslipidemia. PAST SURGICAL HISTORY: 1. x2. 2. Benign cyst from her chin. FAMILY HISTORY: Both parents have had MIs. SOCIAL HISTORY: She currently lives with her . Is a 30 pack per year smoker and has been for about 40 years. Denies any alcohol or illicit drug use. ALLERGIES: Acetaminophen, codeine, morphine, and propoxyphene. HOME MEDICATIONS: Will all be held at this time, but she takes: 1. Gabapentin 600 mg p.o. t.i.d. 2. Hydrocodone 5 one p.o. q.6 hours p.r.n. 3. Centrum Silver 1 p.o. daily. 4. Protonix 40 mg p.o. b.i.d. 5. Paroxetine 20 mg p.o. daily. LABORATORY DATA: Showed a white blood cell count of 20.78, hemoglobin 12.8, hematocrit 42.4, and platelets 365,000. PT and INR of 15.1 and 1.17. ABG on the ventilator showed pH of 7.36, pCO2 42, pO2 58, bicarb 23.3. Sodium 144, potassium 2.9, chloride 103, CO2 23, BUN of 29, creatinine 1.1, glucose 133. Cardiac enzyme was negative. ProBNP of 1255. Plasma lactate was 0.7. Urinalysis was negative. Urine drug screen was presumptive positive for opiates and benzodiazepine. Chest x-ray showed a faint nonspecific infiltrate or atelectasis in the lateral right lung base. Head CT showed a right maxillary sinusitis, but no evidence of acute intracranial disease. EKG showed normal sinus rhythm at 93. Repeat chest x-ray showed endotracheal tube in good position and nasogastric tube in good position in the stomach. REVIEW OF SYSTEMS: Unable to obtain as patient is unable to answer questions. PHYSICAL EXAMINATION: VITAL SIGNS: On arrival, she had a temperature of 99.9 degrees, pulse 118, respirations 26, blood pressure 132/61. She was saturating 89% on a nonrebreather at 15%. Currently, she is at 100% on the ventilator. HEENT: Normocephalic, atraumatic. Normal ENT inspection. Oropharynx and nares appear clear. Again, she is on the ventilator and has an NG tube. I. EYES: Pupils are equal, round, and reactive to light and accommodation. NECK: Normal inspection. Normal range of motion. LUNGS: Rhonchi bilaterally and decrease in the bases. Equal lung expansion and chest wall movement. Remains on ventilator. HEART: Regular rate and rhythm. No murmurs, rubs, or gallops. ABDOMEN: Soft, nontender, nondistended. Bowel sounds are present x4 quadrants. MUSCULOSKELETAL: Unable to assess at this time as she is on a propofol drip and unable to participate. NEUROLOGICAL: Unable to assess at this time as well. ASSESSMENT: 1. Sepsis. 2. Right lower lobe pneumonia, most likely an aspiration. 3. Right maxillary sinusitis. 4. Acute respiratory failure, requiring placed on ventilator. 5. Leukocytosis. 6. Hypokalemia. PLAN: 1. She will be admitted to the intensive care unit and placed on telemetry. 2. She will continue on the ventilator with pulmonology consultation. 3. She is n.p.o. 4. She will be placed on a propofol drip per protocol. 5. Zosyn 3.375 g intravenously every 6. 6. Vancomycin per pharmacy protocol. 7. We will give her potassium 20 mEq intravenously every 4 hours x2 bags. 8. Recheck CBC and BMP in the a.m. 9. We will need to obtain a sputum culture. 10. Blood cultures x2 are pending. 11. Will continue serial plasma lactate. 12. Further orders after seen by Attending and by audit consultant. 13. The patient is a Full Code. Dictated by PRINCE Lee for Melvin Gonzalez MD cc: PRINCE Lee MD
--- NOTE | 2019-01-26 20:28 | HISTORY AND PHYSICAL ---
ADDENDUM: The patient seen and examined by me [id number]. All the laboratory, vital signs and images were reviewed. The patient was found unresponsive by her . Apparently she also was drooling. We have a positive urine toxicology that showed the possibility of opiate and benzodiazepine. As per the she takes Klonopin and also oxycodone at home, and she has been taking those medications for a very long time. Lately, as per the , she has been having problems swallowing and occasionally she has been choking with food. In the other hand, she has been forgetting things more frequently. It looks like she has been having some kind of workup before to rule out dementia, which I believe she has based on the story that the is telling me. Likely this patient has acute hypoxemic respiratory failure due to aspiration pneumonia. She has been placed on mechanical ventilation. Upon admission, she was tachycardic and tachypneic, and she was on a nonrebreathing mask, and the oxygen saturation was 98%. Urine looks fine. Chest x-ray so far did not show any source of infection, but likely this is aspiration pneumonia based on my physical exam findings with some crepitus at the bases bilaterally mostly on the right side. Head CT scan is negative, but she does have right maxillary sinusitis. This patient has sepsis based on the white blood cell count, vital signs, and source of infection. Pulmonary Department has been consulted. I agree with the rest of the nurse practitioner's assessment and plan. cc: Melvin Gonzalez MD
[2019-01-26] MEDS ORDERED: NS NEB INH SCH (22:45)
[2019-01-27] MEDS: DILAUDID IV PRN ×6 (01:13→20:00)
[2019-01-27] MEDS: DIPRIVAN 1% 1,000 MG/100 ML BOTTLE IV SCH ×3 (01:59→10:50)
[2019-01-27] MEDS: ATROVENT NEB INH SCH ×4 (03:18→21:26)
[2019-01-27] MEDS: XOPENEX NEB INH SCH ×4 (03:19→21:26)
[2019-01-27] MEDS: ZOSYN 3.375 GM in NS 50 ML IV SCH ×4 (03:37→21:40)
[2019-01-27] MEDS: NS 1,000 ML IV SCH ×2 (03:37→23:03)
[2019-01-27 04:44] LABS: ALLEN TEST YES; BE 0.1 mmoll (-3.0-3.0); BLOOD TYPE ARTERIAL; METHB 0.2 % (0.0-1.5); O2(CT) 15.5 mL/dL (15.0-23.0); O2HB 94.6 % (95.0-99.0); PCO2(98.6) 39 mmHg (35-45); PO2(98.6) 77 mmHg (60-100); SAMPLE BLOOD; SAO2 94.8 % (95.0-100.0); SRATE 16 BPM; THB 11.6 g/dL (11.5-17.4); TVOL 500 mL; pH(98.6) 7.41 (7.35-7.45)
[2019-01-27 04:46] LABS: MODALITY VENTILATOR
[2019-01-27 06:05] LABS: BASO# 0.06 X1000 (0.0-0.2); BASO% 0.3 % (0.0-0.8); EOS# 0.03 X1000 (0.0-0.7); EOS% 0.1 % (0.0-10.0); HEMATOCRIT 37.8 % (37.0-47.0); HEMOGLOBIN 11.3 g/dL (12.0-16.0); IMM GRAN# 0.05 X1000 (0.0-0.04); IMM GRAN% 0.2 % (0.0-0.5); LYMPH# 1.08 X1000 (1.2-3.4); LYMPH% 5.3 % (20.5-51.1); MCH 27.2 PG (27-31); MCHC 29.9 g/dL (33-37); MCV 90.9 FL (81-99); MONO# 1.04 X1000 (0.11-0.59); MONO% 5.2 % (1.7-9.3); MPV 10.1 FL (7.4-10.4); NEUT# 17.93 X1000 (1.4-6.5); NEUT% 88.9 % (42.2-75.2); PLT 298 X1000 (130-400); RBC 4.16 XMIL (4.2-5.4); RDW 16.1 % (11.5-14.5); WBC 20.19 X1000 (4.8-10.8)
[2019-01-27 06:16] LABS: MAGNESIUM 1.9 mg/dL (1.5-2.7); PHOSPHORUS 1.8 mg/dL (2.7-4.5)
[2019-01-27 06:20] LABS: AGAP 14; BUN 24 mg/dL (8-22); CALCIUM 7.8 mg/dL (8.8-10.2); CHLORIDE 106 mmol/L (98-107); COSMO 290; CREATININE 0.8 mg/dL (0.5-0.9); ESTIMATED GFR > 60; GLUCOSE 124 mg/dL (70-104); POTASSIUM 2.8 mmol/L (3.5-5.1); SODIUM 143 mmol/L (136-145); TCO2 23 mmol/L (25-35)
[2019-01-27 06:32] LABS: LYMPHS 5 % (21-51); MONO 3 % (1-9); SEGS 92 % (42-75)
[2019-01-27] MEDS ORDERED: POTASSIUM PHOSPHATE 21 MMOL in NS 250 ML IV ONE (07:06)
--- NOTE | 2019-01-27 07:12 | Diag Imaging Result Doc PS360 ---
EXAM: CHEST-PORTABLE INDICATION: dyspnea TECHNIQUE: One view COMPARISON: 01/26/2019 FINDINGS: Support tubes and lines are in stable positions. The lungs remain grossly clear. There is no discrete pleural fluid collection or pneumothorax. The cardiomediastinal silhouette and central vasculature are grossly unremarkable. IMPRESSION: Stable chest. Electronically signed by Anjum Bell 01/27/2019 7:10 AM
--- NOTE | 2019-01-27 10:04 | PROGRESS NOTE ---
DATE: 01/27/2019 SUBJECTIVE: The patient is still on mechanical ventilation, and even though she is getting some sedation, she is awake and following commands. She is moving all 4 extremities. She is not complaining of pain at this moment. When I asked her if she remembers what happened yesterday, her answer is no. OBJECTIVE: Vital Signs: Temperature 98.8 degrees, pulse 93, respiratory rate 18, blood pressure 155/72, oxygen saturation 98 on mechanical ventilation. HEENT: Head normocephalic. No trauma. PERRLA. Neck: Supple. No JVD. No masses. Central trachea. Chest: Crepitus, mostly bilaterally at the bases, with some rhonchi. Abdomen: Soft, nontender, nondistended. No hepatosplenomegaly. Extremities: No edema, no clubbing, no cyanosis. Neurological: The patient is on mechanical ventilation, and even though she is on sedation, she is awake and she is following commands and answers questions with a yes or no. LABORATORY DATA: WBC 20.1, hemoglobin 11.3, hematocrit 37.8, platelets 298,000. Sodium 143, potassium 2.8, chloride 106, bicarbonate 23, BUN 24, creatinine 0.8, glucose 124, calcium 7.8. Phosphorus 1.8, magnesium 1.9. ASSESSMENT AND PLAN: 1. Sepsis, likely due to a combination of aspiration pneumonia, I believe at the bases bilaterally, with right maxillary sinusitis. Continue with the same antibiotics. White blood cell count is about the same compared with yesterday. We will monitor this for 1 more day. If no improvement, probably I will get Infectious Disease Department to evaluate this patient. No fever has been reported so far. 2. Bilateral lower lobe pneumonia, likely due to aspiration pneumonia, as above. 3. Right maxillary sinusitis. Continue with antibiotics. 4. Acute hypoxemic respiratory failure. She has been placed on a ventilator. As per the , he found her unresponsive at home and drooling, with respiratory distress. After that, he immediately called 911, and then she was intubated. There is a really high possibility of aspiration pneumonia based on her history. At home, it looks like she is on benzodiazepines and pain medication as well. We have a urine toxicology that showed opiates and benzodiazepines. She is not taking care of her medications, and actually it is her who provides the medications for her because she has been forgetful lately, so I believe this aspiration pneumonia was probably due to her medications, but I am not quite sure about it. 5. Positive urine toxicology with benzodiazepines and opiates. Aware. 6. Hypokalemia with hypophosphatemia. I will replace both. 7. Acute kidney injury, resolved. 8. Possible dementia. Based on the 's history, this patient has been having problems with her memory for a little bit. I do believe this patient has dementia. CRITICAL CARE TIME: 40 minutes. cc: Melvin Gonzalez MD
[2019-01-27] MEDS: VANCOMYCIN 1 GM/NS 1 GM/250 ML IVPB IV SCH (10:49)
[2019-01-27 14:56] LABS: ALLEN TEST NO; BE -0.5 mmoll (-3.0-3.0); BLOOD TYPE ARTERIAL; HCO3-(ACT) 24.5 mmoll (20.0-26.0); METHB 0.4 % (0.0-1.5); O2(CT) 14.5 mL/dL (15.0-23.0); O2HB 93.3 % (95.0-99.0); PCO2(98.6) 39 mmHg (35-45); PO2(98.6) 67 mmHg (60-100); SAMPLE BLOOD; SAO2 93.9 % (95.0-100.0)
[2019-01-27 14:57] LABS: MODALITY VENTILATOR
[2019-01-27] MEDS ORDERED: POTASSIUM CHLORIDE 20% LIQUID PO ONE (17:00)
[2019-01-27] MEDS ORDERED: POTASSIUM CHLORIDE 20% LIQUID NG ONE (21:00)
--- NOTE | 2019-01-27 22:50 | CONSULTATION ---
DATE OF CONSULTATION: 01/27/2019 REQUESTING PROVIDER: PRINCE Lee. REASON FOR CONSULTATION: Ventilator management, acute respiratory failure. HISTORY OF PRESENT ILLNESS: This is a 63-year-old, female, with a medical history of severe scoliosis, chronic pain syndrome, anxiety, hyperlipidemia, and history of upper GI bleeding. She presented to the ER yesterday morning via EMS, after the patient's found her gasping for air with acute respiratory distress, unresponsiveness, and some thick yellow sputum coming from her mouth down onto her shirt. Per H P, when EMS arrived, her oxygen saturation was in the 80s and later increased to 90s on 100% nonrebreather. Patient apparently was still struggling to breathe on 100 nonrebreather, so she was eventually intubated in the ER. Initial workup in the ER revealed sepsis, possible aspiration, right lower lobe pneumonia, right maxillary sinusitis, and hypokalemia. The patient currently is lying in bed with no acute distress noted. She is still intubated and she is on Diprivan drip at 65 mg/kg/minute, but the patient apparently widely awake. The patient's is at the bedside and communicating with the patient through the board. The patient's current blood pressure is 152/72 with pulse 93. So, I told patient's to let her rest at this time. The patient's reported the patient has had productive cough and occasional wheezing for over 6 weeks. She has been treated with antibiotic, inhaler, and steroid shot for bronchitis outpatient, and after the antibiotic therapy, patient did feel a lot better, but later her productive cough and wheezing came back. She has been struggling with her breathing more and more recently. She also has some witnessed snoring, but patient's did not note any fever, chills, weight change, bowel habit change in the patient. PAST MEDICAL/SURGICAL HISTORY: 1. Ongoing tobacco abuse. 2. 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 The patient has been sleeping in recliner for many years because of the severe scoliosis and associated chronic pain due. 3. Chronic pain syndrome secondary to severe scoliosis, on [place] 5 at home. 4. Anxiety. 5. Hyperlipidemia. 6. History of upper GI bleed bleeding with gastric antral ulcer and duodenal ulcers. 7. Recent bronchitis, treated with antibiotic, inhaler, and steroid shot outpatient. 8. section x2. 9. Benign cyst removal from her chin. 10. Right retrograde femoral intramedullary nailing in September 2017. SOCIAL HISTORY: The patient lives at home with her family. She smokes 1 pack a day for over 40 years. She has no history of alcohol or illicit drug use. FAMILY HISTORY: Positive for heart disease. ALLERGIES: Acetaminophen, codeine, morphine, and propoxyphene. REVIEW OF SYSTEMS: Unable to be obtained. PHYSICAL EXAMINATION: Vital Signs: Temperature 97.9, blood pressure 164/69, pulse 98, respiratory rate 16, oxygen saturation 98% on AC mechanical ventilator, with spontaneous rate 16, FiO2 50%, tidal volume 500, and PEEP 5. General: Chronically ill-appearing, lying in bed, intubated and sedated, but widely awake. Complaining of general pain at this time. When I stepped in the room, patient is communicating with her through writing on the board. HEENT: Atraumatic, normocephalic. Trachea midline. ET tube in place. Mucosa pink and slightly dry. Respiratory: Mechanically ventilated. Symmetrical excursion. Clear to auscultation bilaterally. Cardiovascular: Regular rate and rhythm. Gastrointestinal: Soft, nontender, nondistended. Normoactive bowel sounds in all 4 quadrants. Extremities: Right upper extremity pitting edema, pale in appearance, and cold to touch. No pedal edema. Dorsalis pedis 2+ bilaterally. Neurologic: Sedated, but widely awake. Able to follow commands. LABORATORY DATA: White blood cell 20.19, hemoglobin 11.3, hematocrit 37.8, platelet 298,000. Sodium 143, potassium 2.8, chloride 106, carbon dioxide 23, BUN 24, creatinine 0.8, glucose 124. ABG, pH 7.41, pCO2 of 39, PO2 of 77, HC03 of 25.0, base excess 0.1, and oxyhemoglobin 94.6. IMAGING DATA: Chest x-ray this morning, showed stable chest with grossly clear lungs. ASSESSMENT: This is a 63-year-old, female, with a medical history of severe scoliosis, chronic pain syndrome, anxiety, hyperlipidemia, upper gastrointestinal bleeding. She has been admitted to the ICU since yesterday with sepsis, aspiration, right lower lobe pneumonia, right maxillary sinusitis, acute respiratory failure requiring ventilator, and hypokalemia. 1. Acute hypoxic respiratory failure. 2. Possible right lower lobe aspiration pneumonia. 3. Hypokalemia. 4. Right maxillary sinusitis with possible fungal sinusitis. 5. Ongoing tobacco abuse. PLAN: 1. Consider to start weaning trial. 2. Continue antibiotic and bronchodilators. Start electrolyte protocol for potassium. 3. Follow up with CBC, BMP, ABG, blood culture, sputum culture, and chest x-ray. 4. Daily smoking cessation education. 5. Further recommendations pending hospital course. Thank you for the courtesy of this consult. Dictated by PRINCE Aguilar for Casandra Nair MD cc: PRINCE Aguilar MD [facility]
[2019-01-28] MEDS: DILAUDID IV PRN ×6 (02:33→22:40)
[2019-01-28] MEDS: ATROVENT NEB INH SCH ×4 (03:30→21:25)
[2019-01-28] MEDS: XOPENEX NEB INH SCH ×4 (03:30→21:25)
[2019-01-28] MEDS: ZOSYN 3.375 GM in NS 50 ML IV SCH ×4 (04:51→21:38)
[2019-01-28 04:53] LABS: BE -4.1 mmoll (-3.0-3.0); BLOOD TYPE ARTERIAL; HCO3-(ACT) 21.7 mmoll (20.0-26.0); METHB 0.4 % (0.0-1.5); O2(CT) 14.3 mL/dL (15.0-23.0); O2HB 94.7 % (95.0-99.0); PCO2(98.6) 37 mmHg (35-45); PO2(98.6) 79 mmHg (60-100); SAMPLE BLOOD; SAO2 95.1 % (95.0-100.0); THB 10.7 g/dL (11.5-17.4); pH(98.6) 7.36 (7.35-7.45)
[2019-01-28 04:55] LABS: ALLEN TEST YES; MODALITY COOL AEROSOL
[2019-01-28 05:46] LABS: HEMOGLOBIN A1C 4.8 % (4.8-6.0)
[2019-01-28 05:50] LABS: AGAP 12; BUN 15 mg/dL (8-22); CALCIUM 8.3 mg/dL (8.8-10.2); CHLORIDE 111 mmol/L (98-107); COSMO 288; CREATININE 0.5 mg/dL (0.5-0.9); ESTIMATED GFR > 60; GLUCOSE 106 mg/dL (70-104); MAGNESIUM 2.2 mg/dL (1.5-2.7); PHOSPHORUS 1.1 mg/dL (2.7-4.5); POTASSIUM 3.5 mmol/L (3.5-5.1); SODIUM 144 mmol/L (136-145); TCO2 21 mmol/L (25-35)
[2019-01-28] MEDS ORDERED: POTASSIUM PHOSPHATE 21 MMOL in NS 250 ML IV ONE (07:01)
[2019-01-28 07:07] LABS: BASO# 0.05 X1000 (0.0-0.2); BASO% 0.4 % (0.0-0.8); EOS# 0.36 X1000 (0.0-0.7); EOS% 2.5 % (0.0-10.0); HEMATOCRIT 33.6 % (37.0-47.0); HEMOGLOBIN 10.2 g/dL (12.0-16.0); IMM GRAN# 0.03 X1000 (0.0-0.04); IMM GRAN% 0.2 % (0.0-0.5); LYMPH% 7.8 % (20.5-51.1); MCH 27.7 PG (27-31); MCHC 30.4 g/dL (33-37); MCV 91.3 FL (81-99); MONO# 0.68 X1000 (0.11-0.59); MONO% 4.8 % (1.7-9.3); MPV 10.3 FL (7.4-10.4); NEUT# 11.96 X1000 (1.4-6.5); NEUT% 84.3 % (42.2-75.2); PLT 300 X1000 (130-400); RBC 3.68 XMIL (4.2-5.4); RDW 16.4 % (11.5-14.5); WBC 14.18 X1000 (4.8-10.8)
--- NOTE | 2019-01-28 07:14 | Diag Imaging Result Doc PS360 ---
EXAM: CHEST-PORTABLE 01/28/2019 HISTORY: dyspnea TECHNIQUE: AP portable semiupright at 0502 COMMENT: There is an NG tube passing below the diaphragm into the stomach. There is alveolar opacity in the left lower lobe which appears slightly worse than on 01/27/2019. There may be interstitial pulmonary edema bilaterally. IMPRESSION: Mild pulmonary edema and atelectasis versus pneumonia in the left lower lobe. Electronically signed by Oziel Arenas 01/28/2019 7:11 AM
[2019-01-28] MEDS: D5 1/2 NS 1,000 ML IV SCH ×2 (07:45→19:44)
--- NOTE | 2019-01-28 08:24 | PROGRESS NOTE ---
DATE: 01/28/2019 SUBJECTIVE: This patient has been extubated yesterday, 01/27/2019. She was found unresponsive at home, and she has aspiration pneumonia. She seems to be better. It looks like she has dementia based on the 's history. Her white blood cell count is trending down. No fever documented. She is still slightly tachycardic but she is completely awake and oriented x2. She is not oriented to time. She is not having any kind of problem breathing at this moment but she is complaining of pain on her throat. OBJECTIVE: Vital Signs: Temperature 97.9 degrees, pulse 107, respiratory rate 24, blood pressure 156/83, oxygen saturation 98 on a mask. HEENT: Head normocephalic, no trauma. PERRLA. Neck: Supple. No JVD. No masses. Central trachea. Chest: Crepitus and rhonchi bilaterally at the bases. Abdomen: Soft, nontender, nondistended. No hepatosplenomegaly. Extremities: No edema, no clubbing, no cyanosis. Neurological: This patient is completely awake, alert. She is oriented x2. She is not oriented to time. She believes this is 1998, she is following commands though. She does have some generalized weakness. LABORATORY DATA: WBC 14.1, hemoglobin 10.2, hematocrit 33.6, platelets 300,000. Sodium 144, potassium 4, chloride 111, bicarbonate 21, BUN 15, creatinine 0.5, glucose 106, calcium 8.3, phosphorus 1.1. ASSESSMENT AND PLAN: 1. Acute hypoxemic respiratory failure status post extubation yesterday due to aspiration pneumonia at the bases. This patient has been found unresponsive by her , with respiratory distress. He called immediately 911 and she was intubated. At home, it looks like she is on benzodiazepines and pain medications as well. Urine toxicology showed opiates and benzodiazepines. She is not taking care of her medications. Actually, her provides her medications for her because she has been forgetful for the past months, so probably aspiration pneumonia is related to her medications but I am not quite sure about it. 2. Sepsis due to aspiration pneumonia, bilaterally at the bases with right maxillary sinusitis as well. Continue with antibiotics. White blood cell count trending down. 3. Bilateral lower lobe pneumonia due to aspiration, as above. 4. Right maxillary sinusitis. Continue with antibiotics. 5. Positive urine toxicology with benzodiazepines and opiates. Aware. 6. Hypokalemia with hypophosphatemia. Potassium level seems to be normal today. I will replace the phosphorus. 7. Acute kidney injury, resolved. 8. Possible dementia. Based on the 's story, this patient has been having problems with her memory for a few months, and he has been told that she may have dementia before and I do believe she has dementia as well. CRITICAL CARE TIME: 32 minutes. cc: Melvin Gonzalez MD
[2019-01-28] MEDS: VANCOMYCIN 1 GM/NS 1 GM/250 ML IVPB IV SCH (08:50)
[2019-01-29] MEDS: DILAUDID IV PRN ×7 (01:40→21:26)
[2019-01-29] MEDS: XOPENEX NEB INH SCH ×4 (03:27→21:53)
[2019-01-29] MEDS: ATROVENT NEB INH SCH ×4 (03:27→21:54)
[2019-01-29] MEDS: ZOFRAN IV PRN ×2 (04:06→17:51)
[2019-01-29] MEDS: ZOSYN 3.375 GM in NS 50 ML IV SCH ×4 (05:00→21:29)
[2019-01-29 06:06] LABS: BASO# 0.04 X1000 (0.0-0.2); BASO% 0.4 % (0.0-0.8); EOS# 0.51 X1000 (0.0-0.7); EOS% 4.9 % (0.0-10.0); HEMATOCRIT 32.9 % (37.0-47.0); HEMOGLOBIN 9.7 g/dL (12.0-16.0); LYMPH# 1.17 X1000 (1.2-3.4); LYMPH% 11.1 % (20.5-51.1); MCH 26.9 PG (27-31); MCHC 29.5 g/dL (33-37); MCV 91.1 FL (81-99); MONO# 0.53 X1000 (0.11-0.59); MPV 9.9 FL (7.4-10.4); NEUT# 8.25 X1000 (1.4-6.5); NEUT% 78.6 % (42.2-75.2); PLT 313 X1000 (130-400); RBC 3.61 XMIL (4.2-5.4); RDW 15.6 % (11.5-14.5)
[2019-01-29 06:36] LABS: AGAP 12; ALB/GLOB RATIO 1.1; ALBUMIN 3.3 g/dL (3.5-5.0); ALKALINE PHOSPHATASE 98 U/L (32-104); BUN 5 mg/dL (8-22); CALCIUM 8.3 mg/dL (8.8-10.2); CHLORIDE 105 mmol/L (98-107); COSMO 276; CREATININE 0.6 mg/dL (0.5-0.9); ESTIMATED GFR > 60; GLUCOSE 127 mg/dL (70-104); GOT 14 U/L (10-30); GPT 6 U/L (10-36); MAGNESIUM 2.1 mg/dL (1.5-2.7); PHOSPHORUS 1.3 mg/dL (2.7-4.5); POTASSIUM 3.1 mmol/L (3.5-5.1); SODIUM 139 mmol/L (136-145); TCO2 22 mmol/L (25-35); TOTAL BILIRUBIN 0.47 mg/dL (0.20-1.00); TOTAL PROTEIN 6.2 g/dL (6.3-8.3)
[2019-01-29] MEDS ORDERED: POTASSIUM CHLORIDE 20% LIQUID PO ONE (07:10)
[2019-01-29] MEDS: D5 1/2 NS 1,000 ML IV SCH (08:59)
[2019-01-29] MEDS ORDERED: VANCOMYCIN 1 GM/NS 1 GM/250 ML IVPB IV SCH (11:00)
[2019-01-29] MEDS ORDERED: SODIUM PHOSPHATE 40 MEQ in NS 250 ML IV ONE ×4 (11:30)
--- NOTE | 2019-01-29 13:31 | PROGRESS NOTE ---
DATE: 01/29/2019 SUBJECTIVE: This morning Ms. Valentin refers to be doing well. Denies any new complaints. She is more awake and alert, and very conversational. She was able to consume 25% of her meal this morning. OBJECTIVE: Vital Signs: Blood pressure 120/56, pulse of 107, respirations 18, and temperature is 97.8. General: Ms. Valentin is a 63-year-old female. She is in bed in no distress. Mucosa is pink and moist. Anicteric. Acyanotic. Neck: Supple. Chest: Good air entry bilaterally. There was no crepitations. No rhonchi. Cardiovascular: Regular rate and rhythm. Gastroenterology: Abdomen is soft. Bowel sounds present. There is an old infraumbilical surgical scar. Extremities: No pedal edema. SORTER PRICER: Patient is awake, alert, and oriented. LABORATORY DATA: WBC is down to 10.50, hemoglobin is 9.7, and platelet count of 313,000. Chemistry is also reviewed. Potassium is 2.1, phosphorus is 1.3. Rest of chemistry is unremarkable. IMAGING STUDIES: From days before have all been reviewed. CURRENT MEDICATIONS: 1. D5 half-normal saline at 75 mL per hour. 2. Nebs. 3. Vancomycin per pharmacy protocol. 4. Zosyn. ASSESSMENT: 1. Altered mental status on admission presumably drug/sepsis induced encephalopathy. Initial neuro imaging were negative. 2. Acute hypoxemic respiratory failure. Patient was initially intubated, and was successfully extubated 2 days ago. Transitioned to BiPAP. She is currently on just nasal cannula, and she is doing well. I think she can eventually be transitioned off. 3. Aspiration pneumonitis. Patient is on antimicrobial coverage. Sputum culture is positive for Pseudomonas so we will continue with pseudomonal coverage. 4. Chronic pain syndrome on chronic pain medications. Aware. 5. Right maxillary sinusitis on imaging. Patient is on antimicrobial therapy. 6. Mild acute kidney injury on admission resolved. 7. Electrolyte abnormality including hypokalemia and hypophosphatemia. We will replace. PLAN: In general, I think Ms. Valentin seems to be doing a lot better. Sputum culture has shown Pseudomonas so I will discontinue the vancomycin. We will continue with the Zosyn. Hopefully, transition this to p.o. Levaquin when she is ready for discharge. We will also transfer Ms. Valentin from the ICU to the medical floor on telemetry monitoring. Get physical therapy to start working with her and hopefully discharge her within the next 24 to 48 hours. cc: Anthony Mirza MD
[2019-01-30] MEDS: DILAUDID IV PRN ×3 (00:32→06:45)
[2019-01-30] MEDS: ZOSYN 3.375 GM in NS 50 ML IV SCH ×2 (03:15→09:48)
[2019-01-30] MEDS: D5 1/2 NS 1,000 ML IV SCH (03:22)
[2019-01-30] MEDS: XOPENEX NEB INH SCH ×4 (03:28→21:27)
[2019-01-30] MEDS: ATROVENT NEB INH SCH ×4 (03:28→21:27)
[2019-01-30 07:16] LABS: HEMATOCRIT 33.1 % (37.0-47.0); HEMOGLOBIN 9.9 g/dL (12.0-16.0); MCH 27.3 PG (27-31); MCHC 29.9 g/dL (33-37); MCV 91.4 FL (81-99); MPV 9.5 FL (7.4-10.4); RBC 3.62 XMIL (4.2-5.4); RDW 15.4 % (11.5-14.5); WBC 8.28 X1000 (4.8-10.8)
[2019-01-30 07:57] LABS: AGAP 12; ALBUMIN 3.2 g/dL (3.5-5.0); BUN 3 mg/dL (8-22); CALCIUM 8.5 mg/dL (8.8-10.2); CHLORIDE 106 mmol/L (98-107); COSMO 279; CREATININE 0.6 mg/dL (0.5-0.9); ESTIMATED GFR > 60; GLUCOSE 123 mg/dL (70-104); PHOSPHORUS 1.7 mg/dL (2.7-4.5); POTASSIUM 3.3 mmol/L (3.5-5.1); SODIUM 141 mmol/L (136-145); TCO2 23 mmol/L (25-35)
[2019-01-30] MEDS ORDERED: POTASSIUM PHOSPHATE 60 MEQ in NS 250 ML IV ONE (08:37)
[2019-01-30] MEDS ORDERED: SODIUM CHLORIDE 0.9% INJ PRN (11:55)
[2019-01-30] MEDS: LEVAQUIN PO SCH (12:52)
[2019-01-30] MEDS: NEURONTIN PO SCH ×2 (13:45→20:20)
--- NOTE | 2019-01-30 15:47 | PROGRESS NOTE ---
DATE: 01/30/2019 SUBJECTIVE: This morning, Ms. Valentin refers to be doing a little better. Still kind of weak, but her breathing is significantly improved. OBJECTIVE: Vital signs: Blood pressure is 146/84, pulse of 90, respiration is 18, temperature is 98.6 degrees. Patient is saturating 94% on room air. General: Ms. Valentin is a 63-year-old, female. She is in bed, does not seem to be in any distress. Mucosa is pink and moist. Anicteric, acyanotic. Neck: Supple. No JVD and no carotid bruit. Respiratory System: There is good air entry bilaterally wheezing, but no crackles, no rhonchi. Cardiovascular: Regular rate and rhythm. There are no murmurs, no rubs, no gallops. Gastrointestinal: Abdomen is soft, nontender. Bowel sounds present. There is an old infraumbilical surgical scar. Extremities: No pedal edema. Distal pulses are present. Central nervous system: Patient is awake, alert, oriented. There is no focal deficit. LABORATORY DATA: WBC is 8.28, hemoglobin is 9.9, platelet count of 314,000. Chemistry was also reviewed, potassium is 3.3 and phosphorus is 1.7, both of which have been replaced. Patient's sputum culture has come back positive for Pseudomonas aeruginosa which is pansensitive. ASSESSMENT: 1. Altered mental status on admission, presumably due to sepsis and drug-induced encephalopathy. Initial neuroimaging was negative. Patient's mentation has significantly improved. 2. Acute hypoxemic respiratory failure. The patient was initially intubated, successfully extubated 3 days ago, was transitioned to BiPAP. She is currently off supplemental oxygen. 3. Aspiration pneumonitis with sputum culture positive for Pseudomonas. We are going to continue with oral Levaquin for a total of 14 days. 4. Chronic pain syndrome. The patient is on home medications. 5. Right maxillary sinusitis on CT scan. We will continue with antimicrobial therapy. 6. Mild acute kidney injury. Resolved. 7. Electrolyte abnormality including hypokalemia and hypophosphatemia. We will continue to replace. PLAN: In general, I think Ms. Valentin is doing a lot better. Initially got admitted because of altered mental status, respiratory failure. She was admitted to the ICU, was intubated initially, successfully got extubated and was transitioned to BiPAP and to nasal cannula. This morning, she is off supplemental oxygen. She seems to be doing well. We are going to discontinue the Vogt catheter. We will also discontinue the IV fluids. We will encourage Ms. Valentin to be up in chair. She was evaluated yesterday by Physical Therapy. She did about 3 feet with contact guard assist. I am going to change her current IV antibiotics to p.o. Levaquin for a total of 14 days of antibiotics. She has already been on Zosyn for 4 days, so she would have 10 more days to go. cc: Anthony Mirza MD [facility]TD[facility]
[2019-01-30] MEDS: PROTONIX PO SCH (20:20)
[2019-01-30] MEDS: NORCO-5 PO PRN (22:40)
[2019-01-30] MEDS: PHENERGAN IV PRN (22:44)
[2019-01-31] MEDS: XOPENEX NEB INH SCH ×2 (03:33→08:30)
[2019-01-31] MEDS: ATROVENT NEB INH SCH ×2 (03:33→08:30)
[2019-01-31] MEDS: NORCO-5 PO PRN ×2 (04:43→13:12)
[2019-01-31] MEDS: PHENERGAN IV PRN ×2 (04:44→05:41)
[2019-01-31] MEDS: NEURONTIN PO SCH ×2 (08:04→13:12)
[2019-01-31 08:21] LABS: AGAP 15; ALBUMIN 3.5 g/dL (3.5-5.0); BUN 2 mg/dL (8-22); CHLORIDE 101 mmol/L (98-107); COSMO 276; CREATININE 0.6 mg/dL (0.5-0.9); ESTIMATED GFR > 60; GLUCOSE 112 mg/dL (70-104); PHOSPHORUS 2.2 mg/dL (2.7-4.5); POTASSIUM 2.9 mmol/L (3.5-5.1); SODIUM 140 mmol/L (136-145); TCO2 24 mmol/L (25-35)
--- NOTE | 2019-01-31 08:31 | Diag Imaging Result Doc PS360 ---
EXAM: CHEST-2 VIEWS INDICATION: hypoxia TECHNIQUE: 2 views COMPARISON: 01/28/2019 FINDINGS: The NG tube has been removed. Airspace consolidation at the left lung base is approximately stable. Very mild diffuse interstitial thickening is unchanged. No new consolidation is identified. Cardiac silhouette is stable. IMPRESSION: Essentially stable chest. Electronically signed by Anjum Bell 01/31/2019 8:28 AM
[2019-01-31] MEDS ORDERED: POTASSIUM PHOSPHATE 40 MEQ in NS 250 ML IV ONE (08:35)
[2019-01-31] MEDS ORDERED: PAXIL PO SCH (09:00)
[2019-01-31] MEDS ORDERED: CENTRUM SILVER PO SCH (09:00)
[2019-01-31] MEDS: PROTONIX PO SCH (09:00)
[2019-01-31] MEDS: LEVAQUIN PO SCH (09:00)
[2019-01-31 11:44] VITALS: BP 150/64
[2019-01-31] MEDS ORDERED: TYLENOL PO PRN (13:09)
--- NOTE | 2019-02-02 19:50 | DISCHARGE SUMMARY ---
ADMISSION DATE: 01/26/2019 DISCHARGE DATE: 01/31/2019 CONSULTS: Pulmonology, Dr. Nair. PERTINENT STUDIES: Initial chest x-ray, faint infiltrate in the lateral right lung base. Later x- rays showing stable airspace consolidation of the left lung base, possibly some slight improvement over the course of hospitalization. CT head with right maxillary sinusitis, otherwise unremarkable. Initial white count 20.1, discharge white count 8.29. Initial creatinine 1.1, discharge creatinine 0.6. Sputum culture positive for Pseudomonas aeruginosa, which is pansensitive. Blood cultures negative. Flu screen negative. DISCHARGE DIAGNOSES: 1. Aspiration pneumonia. 2. Acute hypoxic respiratory failure. 3. Sepsis. 4. Metabolic encephalopathy. 5. Acute kidney injury. 6. Chronic pain. 7. Hypokalemia. 8. Hypophosphatemia. 9. Right maxillary sinusitis. HOSPITAL COURSE: The patient presented initially when patient's found her in her sleeping recliner gasping for air and was essentially unarousable. She had sputum coming from her mouth. EMS was called. O2 saturations were reportedly in the 80s initially. It came up into the 90s on non-rebreather. She was in significant respiratory distress. She was she was intubated in the ER. The patient had significant leukocytosis with a white count of 20. No leesa fever, but a mildly elevated temperature at 99.9 degrees, and chest x-ray suggesting infiltrate, so pneumonia with sepsis and acute hypoxic respiratory failure was favored. The patient was started on antibiotics with vancomycin and Zosyn initially. Sputum cultures came back with sputum Cx positive for Pseudomonas. The patient was transitioned to Levaquin. She continued to do well. She was extubated on 01/27/2019. Her oxygenation continued to improve and she was saturating well on room air at the time of discharge. She had some fairly significant confusion after extubation, but this did improve over the course of her hospital stay. She had low potassium and phosphorus repeatedly, but this was significantly improved at the time of discharge. She had a mildly elevated creatinine on admission at 1.1, but this was completely resolved at time of discharge, was down to 0.6 which was thought to be her baseline. As patient's hypoxia and encephalopathy had resolved and she was otherwise doing well, she was discharged home on oral antibiotics to follow up with her PCP. DISCHARGE VITALS: Temperature 98.7 degrees, pulse 104, respirations 18, blood pressure 150/64, O2 saturation 97% on room air. DISCHARGE DIET: Regular. DISCHARGE MEDICATIONS: Gabapentin 600 mg p.o. t.i.d., [place] as previously prescribed, multivitamin daily, Levaquin 750 mg daily for 5 days, Paxil 30 mg p.o. daily, Protonix 40 mg b.i.d. FOLLOWUP AND PLAN: The patient is discharging home to finish course of Levaquin for aspiration pneumonia with sputum cultures positive for Pseudomonas. Patient to follow up with PCP. Greater than 30 minutes spent in arranging discharge and counseling patient. [facility] CENTERMelisa
== END 2019-01-31 14:53 | disposition home or self-care (01) | DRG 871 ==
LOC: SUPCPDRO → ED 09:09 → ICU 11:59 → SUATTDRO 11:59 → 3N 01-29 15:49
PROVIDERS: ATTEND Internal Medicine

== ENCOUNTER 2019-06-04 23:01 | Inpatient (IN) ==
[2019-06-04 23:52] LABS: BASO# 0.04 X1000 (0.0-0.2); BASO% 0.3 % (0.0-0.8); EOS% 2.1 % (0.0-10.0); HEMATOCRIT 36.2 % (37.0-47.0); HEMOGLOBIN 10.9 g/dL (12.0-16.0); IMM GRAN# 0.04 X1000 (0.0-0.04); IMM GRAN% 0.3 % (0.0-0.5); MCH 26.4 PG (27-31); MCHC 30.1 g/dL (33-37); MCV 87.7 FL (81-99); MONO# 0.98 X1000 (0.11-0.59); MONO% 6.9 % (1.7-9.3); MPV 9.4 FL (7.4-10.4); NEUT# 11.12 X1000 (1.4-6.5); NEUT% 78.4 % (42.2-75.2); PLT 299 X1000 (130-400); RBC 4.13 XMIL (4.2-5.4); RDW 17.9 % (11.5-14.5); WBC 14.18 X1000 (4.8-10.8)
[2019-06-05 00:07] LABS: INR 1.14; PROTIME 14.8 Seconds (11.0-16.0)
[2019-06-05 00:08] LABS: PTT 34.5 Seconds (22.3-41.8)
[2019-06-05 00:10] LABS: ALLEN TEST YES; BE -0.2 mmoll (-3.0-3.0); BLOOD TYPE ARTERIAL; HCO3-(ACT) 24.7 mmoll (20.0-26.0); METHB 1.2 % (0.0-1.5); O2(CT) 12.6 mL/dL (15.0-23.0); O2HB 94.3 % (95.0-99.0); PCO2(98.6) 36 mmHg (35-45); PO2(98.6) 79 mmHg (60-100); SAMPLE BLOOD; SAO2 98.2 % (95.0-100.0); THB 9.4 g/dL (11.5-17.4); pH(98.6) 7.43 (7.35-7.45)
[2019-06-05 00:11] LABS: MODALITY CANNULA
[2019-06-05 00:14] LABS: AGAP 15; ALB/GLOB RATIO 1.5; ALBUMIN 3.8 g/dL (3.5-5.0); ALKALINE PHOSPHATASE 110 U/L (32-104); BUN 14 mg/dL (8-22); CALCIUM 8.6 mg/dL (8.8-10.2); CHLORIDE 106 mmol/L (98-107); COSMO 291; CREATININE 0.7 mg/dL (0.5-0.9); ESTIMATED GFR > 60; GLUCOSE 123 mg/dL (70-104); GOT 16 U/L (10-30); GPT 7 U/L (10-36); POTASSIUM 3.4 mmol/L (3.5-5.1); SODIUM 145 mmol/L (136-145); TCO2 24 mmol/L (25-35); TOTAL PROTEIN 6.3 g/dL (6.3-8.3)
[2019-06-05 00:23] LABS: TOTAL BILIRUBIN < 0.15 mg/dL (0.20-1.00)
--- NOTE | 2019-06-05 01:52 | EKG Report ---
Test Performed on : 06/04/2019 11:19:57 PM Test Reason : sob Blood Pressure : / mmHG Vent. Rate : 103 BPM Atrial Rate : 103 BPM P-R Int : 134 ms QRS Dur : 118 ms QT Int : 390 ms P-R-T Axes : 049 029 074 degrees QTc Int : 510 ms Sinus tachycardia. Septal infarct (cited on or before 23-FEB-2013) Abnormal ECG When compared with ECG of 26-JAN-2019 10:53, Non-specific change in ST segment in Anterior leads ST now depressed in Lateral leads Nonspecific T wave abnormality no longer evident in Inferior leads T wave inversion no longer evident in Anterolateral leads Unconfirmed Result
[2019-06-05] MEDS ORDERED: ROCEPHIN 1 GM in NS 50 ML IV ONE (03:00)
--- NOTE | 2019-06-05 03:03 | PROVIDER DOCUMENTATION ---
HPI-Respiratory General - General Chief Complaint: SEPSIS ALERT Stated Complaint: sob Time Seen by Provider: 06/04/19 23:06 Source: patient Allergies/Adverse Reactions: Patient Allergies Allergy/AdvReac Type Severity Reaction Status Date / Time acetaminophen AdvReac Unknown Verified 01/26/19 10:53 [From Darvocet-N] codeine AdvReac Unknown Verified 01/26/19 10:53 morphine AdvReac Unknown Verified 01/26/19 10:53 propoxyphene AdvReac Unknown Verified 01/26/19 10:53 [From Darvocet-N] Home Medications: Home Medication List Medication Instructions Recorded Confirmed Last Taken Type Hydrocodone/Acetaminophen 1 each PO Q6H PRN 03/11/18 01/26/19 01/25/19 20:00 History [Hydrocodone-Acetamin 5-325 mg] Multivitamins/Minerals [Centrum 1 ea PO DAILY #100 tab 03/13/18 01/26/19 01/25/19 07:00 Rx Silver] Pantoprazole [Protonix 40 mg PO BID #60 tab 03/13/18 01/26/19 01/25/19 20:00 Rx [Nonformulary]] Gabapentin 600 mg PO TID 01/26/19 01/26/19 01/25/19 20:00 History Levofloxacin [Levaquin] 750 mg PO DAILY #5 tab 01/31/19 Unknown Rx Paroxetine HCl [Paxil] 30 mg PO DAILY #30 tab 01/31/19 Unknown Rx - History of Present Illness-Resp Nature of Presenting Problem: 63 y/o WF c/o URI with acute SOB for the past several days. She states that her was tested for COVID today but didnt get tested herself. Pt took one of her husbands breathing treatments just before arrival and required supplemental oxygen in route. On arrival her O2sat was 90-92 with oxygen. Quality of Pain: denies: none, aching, burning, cramping, dull, fullness, indig estion, pressure, sharp, stabbing, tearing, throbbing, tightness, other Severity in ED: reports: moderate Onset/Duration: reports: 4 days ago Timing: reports: still present, getting worse Context: reports: recent URI Exposure: reports: illness exposure Cough Quality/Degree: reports: moderate Episode Frequency: no prior episodes Current Respiratory Medication Therapy: Initiated see nurses note, Initiated albuterol Modifying Factors: improves with: albuterol inhaler, oxygen Associated Symptoms: reports: cough, fever/chills. denies: chest pain/soreness Similar Symptoms Previously?: Yes (pt was admitted for same last Dec) Recently seen or treated by another doctor?: No Review of Systems - Adult - REVIEW OF SYSTEMS - ADULT Constitutional: reports: see HPI, fever Eyes: reports: no symptoms reported, see HPI Ears, Nose, Mouth & Throat: reports: no symptoms reported, see HPI Cardiovascular: reports: no symptoms reported, see HPI Respiratory: reports: see HPI, cough, shortness of breath, wheezing Gastrointestinal: reports: no symptoms reported, see HPI Genitourinary: reports: no symptoms reported, see HPI Musculoskeletal: reports: no symptoms reported, see HPI Integumentary: reports: no symptoms reported, see HPI Neurological: reports: no symptoms reported, see HPI Psychiatric: reports: no symptoms reported, see HPI Endocrine: reports: no symptoms reported, see HPI Hematologic/Lymphatic: reports: no symptoms reported, see HPI Allergic/Immunologic: reports: no symptoms reported, see HPI All Other Systems: Reviewed and Negative Past History - Adult - PAST MEDICAL HISTORY-ADULT Review of Records: reports: Nursing Assessment Review, Medications Reviewed, Social history reviewed & non-contributory. Major Childhood Illnesses: reports: denies history Cardiovascular: reports: denies history Respiratory: reports: denies history Gastrointestinal: reports: GERD, GI bleed Obstetrical/Gynecological: reports: denies history Genitourinary: reports: denies history Musculoskeletal: reports: arthritis, chronic pain, neck/back injury, osteoporosis Neurological: reports: denies history Psychiatric: reports: anxiety Endocrine/Immune: reports: denies history Other Conditions: reports: denies history - PRIOR SURGERIES/PROCEDURES Surgical/Procedure History: reports: , back/neck (back surgery) - IMMUNIZATION STATUS Childhood Immunizations: UTD Flu Vaccine: See Nurse Assessment - FAMILY HISTORY Family History: reviewed, not pertinent Physical Exam-General - PHYSICAL EXAM-ADULT Initial Vital Signs Reviewed: Yes - CONSTITUTIONAL General Appearance: mild distress, lethargic, slow to respond - EYES Eyes: PERRL/EOMI - HEAD, EARS, NOSE, MOUTH & THROAT HENMT: normocephalic/atraumatic, moist mucous membranes, normal ENT inspection, TMs normal, pharynx normal - NECK Neck: non-tender, full range of motion, supple, normal inspection - RESPIRATORY Respiratory: chest non-tender, no pleuratic chest pain, respiratory distress, rhonchi, wheezing, increased rate - CARDIOVASCULAR Cardiovascular: normal peripheral pulses, regular rate, rhythm, no edema, no gallop - GASTROINTESTINAL (ABDOMEN) Abdominal Exam: normal bowel sounds, non tender, soft, no organomegaly, no pulsatile mass - LYMPHATIC Lymphatic: no adenopathy - MUSCULOSKELETAL Back Exam: normal inspection, no CVA tenderness, no vertebral tenderness Extremity: normal range of motion, non-tender, normal gait, normal inspection, no pedal edema, no calf tenderness, normal capillary refill - SKIN Integumentary: normal color, normal turgor - NEUROLOGIC Neurologic: 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 II-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 nml as tested, grossly normal, no motor/sensory deficits - PSYCHIATRIC Psych/Mental Status: normal mood/affect, normal thought content, normal thought process, oriented x 3 - HEART Score HEART Score: History: Moderately Suspicious HEART Score: ECG: Non-Specific Repolarization Disturbance/LBBB/PM HEART Score: Age: > or = 65 Years HEART Score: Risk Factors for Atherosclerotic Disease: > or = 3 Risk Factors or History of Atherosclerotic Disease HEART Score: Troponin: < or = Normal Limit Total HEART Score:: 6 Progress - PLAN OF CARE/RESULTS Progress/Plan/Lab Results: Vital Signs - 8 hr 06/04/19 23:10 Temperature 99.8 F H Pulse Rate 103 H Respiratory Rate 24 Blood Pressure 136/62 O2 Sat by Pulse Oximetry 92 L 06/04/19 23:24 Influenza Screen - Final Nasopharyngeal 06/04/19 23:24 Group A Strep Rapid Antigen - Final Throat Laboratory Results - last 24 hr 06/04/19 06/04/19 06/04/19 00:00 23:33 23:33 WBC RBC Hgb Hct MCV MCH MCHC RDW Std Deviation Plt Count MPV Immature Gran % (Auto) Neut % (Auto) Lymph % (Auto) [place] % (Auto) Eos % (Auto) Baso % (Auto) Immature Gran # (Auto) Neut # (Auto) Lymph # (Auto) [place] # (Auto) Eos # (Auto) Baso # (Auto) PT 14.8 INR 1.14 PTT (Actin FS) 34.5 Specimen Type ARTERIAL Sample Site R RADIAL pH 7.43 pCO2 36 pO2 79 HCO3 24.7 Base Excess -0.2 Oxyhemoglobin 94.3 L ABG O2 Sat (Calculated) 12.6 L ABG O2 Saturation 98.2 ABG Carboxyhemoglobin 2.90 H ABG Methemoglobin 1.2 Sajan Test YES A-a O2 Difference 133.0 Total Hemoglobin 9.4 L Lactate 0.70 Liter Flow 4.0 Blood Gas Modality CANNULA FiO2 % 36.0 Sodium 145 Potassium 3.4 L Chloride 106 Carbon Dioxide 24 L Anion Gap 15 BUN 14 Creatinine 0.7 Estimated GFR/1.73 m2 > 60 BUN/Creatinine Ratio 20 Glucose 123 H Calculated Osmolality 291 Calcium 8.6 L Total Bilirubin < 0.15 L AST 16 ALT 7 L Alkaline Phosphatase 110 H Troponin T High Sens [id number] Pept Total Protein 6.3 Albumin 3.8 Globulin 2.5 Albumin/Globulin Ratio 1.5 06/04/19 06/04/19 06/04/19 23:33 23:33 23:33 WBC 14.18 H RBC 4.13 L Hgb 10.9 L Hct 36.2 L MCV 87.7 MCH 26.4 L MCHC 30.1 L RDW Std Deviation 17.9 H Plt Count 299 MPV 9.4 Immature Gran % (Auto) 0.3 Neut % (Auto) 78.4 H Lymph % (Auto) 12.0 L [place] % (Auto) 6.9 Eos % (Auto) 2.1 Baso % (Auto) 0.3 Immature Gran # (Auto) 0.04 Neut # (Auto) 11.12 H Lymph # (Auto) 1.70 [place] # (Auto) 0.98 H Eos # (Auto) 0.30 Baso # (Auto) 0.04 PT INR PTT (Actin FS) Specimen Type Sample Site pH pCO2 pO2 HCO3 Base Excess Oxyhemoglobin ABG O2 Sat (Calculated) ABG O2 Saturation ABG Carboxyhemoglobin ABG Methemoglobin Sajan Test A-a O2 Difference Total Hemoglobin Lactate Liter Flow Blood Gas Modality FiO2 % Sodium Potassium Chloride Carbon Dioxide Anion Gap BUN Creatinine Estimated GFR/1.73 m2 BUN/Creatinine Ratio Glucose Calculated Osmolality Calcium Total Bilirubin AST ALT Alkaline Phosphatase Troponin T High Sens 33 H [id number]-[id number] Pept 528 H Total Protein Albumin Globulin Albumin/Globulin Ratio Orders Category Date Time Status Cardiac Monitoring NOW Care 06/05/19 01:47 Active IV Insertion NOW Care 06/05/19 01:47 Completed NEWS Score >or=5:Order NEWS Bundle S.O. NOW Care 06/04/19 23:17 Active Notify Provider of NEWS Score NOW Care 06/05/19 01:47 Active Nursing [[facility] [place]. NRSG Communication Order] DIRECTED Care 06/05/19 02:[address] ANGIOGRM PULMONARY ARTERIES [CT] Stat Exams 06/05/19 01:10 Taken cxr [CHEST-1 VIEW] [RAD] Stat Exams 06/04/19 23:12 Taken ABG [RESP] Routine Lab 06/04/19 00:00 Completed BLOOD CULTURE [BLDCUL] Stat Lab 06/05/19 00:02 Results CBC WITH ELECTRONIC DIFF [HEME] Stat Lab 06/04/19 23:33 Completed COMPREHENSIVE METABOLIC PANEL [CHEM] Stat Lab 06/04/19 23:33 Completed DIRECT STREP Stat Lab 06/04/19 23:24 Completed Flu Swab [INFLUENZA SCREEN A/B] Stat Lab 06/04/19 23:24 Completed LACTATE, PLASMA [CHEM] Lab 06/05/19 02:33 Uncollected LACTATE, PLASMA [CHEM] Lab 06/05/19 05:33 Uncollected PRO B-NATRIURETIC PEPTIDE Stat Lab 06/04/19 23:33 Completed PROTIME WITH INR [COAG] Stat Lab 06/04/19 23:33 Completed PTT [COAG] Stat Lab 06/04/19 23:33 Completed TROPONIN T HIGH SENSITIVITY Stat Lab 06/04/19 23:33 Completed URINALYSIS W/POSS RFLX CULT [URINALYSIS] Stat Lab 06/05/19 01:47 Uncollected O2 Per Protocol Stat Oth 06/05/19 01:47 Active EKG [EKG] Stat Ther 06/04/19 23:12 Draft Result Diagrams: 06/04/19 23:33 06/04/19 23:33 - EKG 1 Time of EKG reading by physician:: 23:20 EKG Read and Signed by:: Antoni Brooks EKG Interpretation (*Must complete 3 of following elements*): Abnormal Rate: 104 Rhythm: sinus tachycardia QRS: LBB ST Wave: elevated (in v2) - CT/MRI 1 CT Study: Thorax Impression: Abnormal, See EMR Report (No PE. Emphsema noted.) - CONSULTS/PCP/HOSPITALIST Notification #1 *Consult/PCP/Hospitalist*: Dr Braxton Time Discussed: 03:10 Consult Disposition: Will see in ED, Admit Departure - Departure Date of Disposition Decision: 06/05/19 Time of Disposition Decision: 02:58 DIAGNOSIS: SOB (shortness of breath), Fever, Anemia, CHF (congestive heart failure), Elev ated troponin, Emphysema/COPD Disposition: ADMITTED INPATIENT 09 Certified Medical Emergency: Emergent Condition: Fair Referrals and Follow-Ups: UNKNOWN, [Primary Care Provider] - - Critical Care Note This patient required my direct & personal management of CC.: No Attestation - Physician/ JOSÉ Attestation Patient care was provided by Advanced Practice Provider:: No The physician spent face to face time with patient:: Yes Advanced Practice Provider documentation review:: Supervising physician onsite and consulted in the evaluation and care of this patient. The physician did have a face to face encounter with the patient.
[2019-06-05 03:48] LABS: URINE SOURCE CATH
[2019-06-05 03:52] LABS: BILIRUBIN URINE NEGATIVE (NEGATIVE); BLOOD URINE NEGATIVE (NEGATIVE); COLOR YELLOW; GLUCOSE URINE NEGATIVE (NEGATIVE); KETONE URINE TRACE mg/dL (NEGATIVE); LEUKOCYTES URINE NEGATIVE (NEGATIVE); NITRITE URINE NEGATIVE (NEGATIVE); PROTEIN URINE 30 mg/dL (NEGATIVE); TURBIDITY URINE CLEAR (CLEAR); UROBILINOGEN URINE NORMAL (NORMAL)
[2019-06-05 04:12] LABS: UR EPITHELIAL CELLS <10 /HPF (<10); URINE BACTERIA NEGATIVE /HPF; URINE RBC <10 /HPF (<10); URINE WBC <10 /HPF (<10); URINE YEAST NONE SEEN
[2019-06-05 04:13] LABS: SP GRAVITY URINE 1.025
--- NOTE | 2019-06-05 05:14 | HISTORY AND PHYSICAL ---
PRIMARY CARE PROVIDER: Dr. Prakash. CHIEF COMPLAINT: Shortness of breath. HISTORY OF PRESENTING ILLNESS: A 63-year-old female with a history of COPD, chronic pain, anxiety, who had presented to emergency department with several days history of having worsening shortness of breath. She was seen in the ED. She was somewhat dyspneic. She was put on some supplemental oxygen. The patient is a poor historian. She was mostly sleepy and would not answer much questions. However, she was able to deny having any headache, nausea, vomiting, diarrhea, chest pain, or any weight changes. PAST MEDICAL HISTORY: Includes COPD, chronic pain, anxiety disorder. PAST SURGICAL HISTORY: Cyst removed from chin. ALLERGIES: Acetaminophen, codeine, morphine, propoxyphene. CURRENT MEDICATIONS: Gabapentin 600 mg p.o. t.i.d., [place] 7. 5 mg p.o. q.6 hours, pantoprazole 40 mg p.o. b.i.d., paroxetine 30 mg p.o. daily. SOCIAL HISTORY: A 30 pack years history of smoking. Denies any history of alcohol or illicit drug use. FAMILY HISTORY: No history of coronary artery disease. REVIEW OF SYSTEMS: Is limited as in HPI. PHYSICAL EXAMINATION: GENERAL: The patient is mostly sleepy, however, does respond to a few questions. VITAL SIGNS: Temperature 99.8 degrees, pulse 103, respirations 24, blood pressure 136/62. HEENT: Atraumatic, normocephalic. Extraocular movements intact. PERRLA. NECK: No masses. CHEST: Scattered wheezes. CARDIOVASCULAR: Regular rate and rhythm. ABDOMEN: Soft. Positive bowel sounds. EXTREMITIES: No edema. NEUROLOGIC: The patient is arousable. GENITOURINARY: No bladder distention. SKIN: Warm. LABORATORIES AND STUDIES: WBCs 14.18, hemoglobin 10.9, hematocrit 36.2, platelets 299,000. Sodium 145, potassium 3.4, chloride 106, CO2 is 24, BUN is 14, creatinine 0.7, glucose is 123. Blood gas shows pH of 7.43. Pulmonary arteriogram did not reveal any PE. ASSESSMENT: A 63-year-old female with a history of chronic obstructive pulmonary disease, chronic pain, anxiety disorder, presented to emergency department with several days history of shortness of breath. She was seen in the ED and it was suspected possibly she was having an exacerbation of her COPD. Subsequently, she will require admission for further management. 1. Chronic obstructive pulmonary disease exacerbation. 2. Dyspnea. 3. Chronic pain. 4. Anxiety disorder. PLAN: 1. We will admit patient to medical floor with telemetry. 2. We will continue with ProAir inhaler. 3. Continue with supplemental oxygen. 4. We will continue with IV antibiotics. 5. Restart other home medications. 6. We will put patient on DVT prophylaxis with SCD. 7. Continue to follow, and reassess and make further recommendation based on patient's clinical course. cc: Harvey Braxton MD
--- NOTE | 2019-06-05 05:23 | Diag Imaging Result Doc PS360 ---
EXAM: CHEST-1 VIEW HISTORY: sob TECHNIQUE: Single view COMPARISON: 01/31/2019 FINDINGS: The lungs are well expanded. The heart is not enlarged. The vessels are not distended. There are no infiltrates. No effusion identified. IMPRESSION: Negative exam. Electronically signed by Shant Matos 06/05/2019 5:21 AM
--- NOTE | 2019-06-05 05:47 | Diag Imaging Result Doc PS360 ---
EXAM: CT ANGIOGRM PULMONARY ARTERIES HISTORY: sob, cp TECHNIQUE: CT chest with intravenous contrast. Pulmonary arterial protocol with MIP images. COMPARISON: None. FINDINGS: Normal opacification of the pulmonary arteries and their major branches. No aortic aneurysm or dissection. Heart is borderline mildly prominent with left ventricular hypertrophy. No enlarged lymph nodes. No consolidation. No bronchiectasis. Minimal atelectasis in the right lower lobe. Moderate scoliosis. Old left eighth rib fracture. No pneumothorax. Limited images through the upper abdomen reveal several left renal cysts measuring up to 3.7 cm. IMPRESSION: 1.No pulmonary emboli 2.A preliminary report was given at 1:58 AM This exam was performed using automated exposure control, adjustment of mA or kV according to patient size, and/or use of iterative reconstruction technique. Electronically signed by Shant Matos 06/05/2019 5:45 AM
[2019-06-05] MEDS ORDERED: LEVAQUIN 500 MG/D5W 500 MG/100 ML IVPB IV SCH (06:22)
[2019-06-05] MEDS ORDERED: ZOFRAN IV PRN (06:22)
[2019-06-05] MEDS: VENTOLIN HFA INH SCH ×3 (09:27→21:33)
--- NOTE | 2019-06-05 09:40 | PROGRESS NOTE ---
DATE: 06/05/2019 SUBJECTIVE: Ms Valentin is a 63-year-old, who came in early this morning with shortness of breath. She was followed by Dr. Prakash in the past. A 63-year-old with history of COPD, chronic pain, anxiety, presented to the emergency department with several-day history of worsening shortness of breath, seen in the emergency room somewhat dyspneic. She was put on some supplemental oxygen. The patient was reported not to be a good historian. She is mostly sleepy and would not answer questions. Denied any headache, nausea, vomiting, diarrhea, or chest pain. PAST MEDICAL HISTORY: COPD; apparently she has home oxygen. Chronic pain, anxiety disorder. PAST SURGICAL HISTORY: Cyst removed from her chin. [place] like she had a COPD exacerbation and some bronchial irritation, postnasal drainage. She reports she is breathing better today, feels a little better. OBJECTIVE: Vital Signs: Temperature 100.1 degrees, pulse 102, respirations 16, blood pressure 134/56. Eyes: Pupils are equal and round. Lungs: Lungs are clear in all lung hernandez. Cardiovascular exam: Regular rhythm and rate without murmur or S3. Abdomen: Abdomen is soft. Skin: Skin is warm and dry. Extremities: No pedal edema. LABORATORY DATA: White count was 14,180, hematocrit is 36, platelet count 299,000. Sodium 145, potassium 3.4, chloride 106. BUN 14, creatinine 0.7. Pro time is 14.8. Urinalysis unremarkable. Her blood gases on arrival to the emergency room: A pH was 7.43, pCO2 was 36, PO2 was 79. IMAGING STUDIES: Chest x-ray: Negative exam. No sign of infiltrates. She had a pulmonary arteriogram done, CT angiogram, and no pulmonary emboli, no sign of infiltrate. CURRENT ORDERS: Levofloxacin 500 mg IV q. 24 hours. Looking at her home medications, she takes hydrocodone 5 mg q. 6 hours p.r.n. pain. She is on gabapentin 600 mg t.i.d. We will hold that for now. She was taking a muscle relaxer. I am giving her a multivitamin and give her Paxil. cc: Sajan Milton MD
[2019-06-05] MEDS: TYLENOL PO PRN ×2 (10:12→21:29)
[2019-06-05] MEDS: NORCO-5 PO PRN ×2 (11:51→18:00)
[2019-06-05] MEDS ORDERED: CHLORASEPTIC SPRAY MT PRN (14:06)
[2019-06-05 14:42] LABS: UR AMPHETAMINES QUAL NONE DETECTED (NONE DETECT); UR BARBITUATES QUAL NONE DETECTED (NONE DETECT); UR BENZODIAZEPIN QUAL PRESUMPTIVE POSITIVE (NONE DETECT); UR CANNABINOIDS QUAL NONE DETECTED (NONE DETECT); UR COCAINE QUAL NONE DETECTED (NONE DETECT); UR METHADONE QUAL NONE DETECTED (NONE DETECT); UR OPIATES QUAL PRESUMPTIVE POSITIVE (NONE DETECT); UR OXYCODONE QUAL NONE DETECTED (NONE DETECT); UR PCP QUAL NONE DETECTED (NONE DETECT)
[2019-06-06] MEDS: NORCO-5 PO PRN ×2 (00:27→06:26)
[2019-06-06] MEDS: TYLENOL PO PRN ×2 (03:48→08:25)
[2019-06-06] MEDS: VENTOLIN HFA INH SCH (04:15)
[2019-06-06 04:37] VITALS: BP 136/81
[2019-06-06 04:55] LABS: IMM GRAN# 0.03 X1000 (0.0-0.04); IMM GRAN% 0.4 % (0.0-0.5)
[2019-06-06 05:11] LABS: BASO# 0.04 X1000 (0.0-0.2); BASO% 0.5 % (0.0-0.8); EOS# 0.11 X1000 (0.0-0.7); EOS% 1.3 % (0.0-10.0); HEMATOCRIT 37.2 % (37.0-47.0); HEMOGLOBIN 11.2 g/dL (12.0-16.0); LYMPH# 1.32 X1000 (1.2-3.4); LYMPH% 16.1 % (20.5-51.1); MCH 26.9 PG (27-31); MCHC 30.1 g/dL (33-37); MCV 89.2 FL (81-99); MONO# 0.62 X1000 (0.11-0.59); MONO% 7.6 % (1.7-9.3); MPV 9.1 FL (7.4-10.4); NEUT# 6.09 X1000 (1.4-6.5); NEUT% 74.1 % (42.2-75.2); PLT 342 X1000 (130-400); RBC 4.17 XMIL (4.2-5.4); RDW 17.3 % (11.5-14.5); WBC 8.21 X1000 (4.8-10.8)
[2019-06-06 05:23] LABS: AGAP 14; BUN 8 mg/dL (8-22); CALCIUM 8.9 mg/dL (8.8-10.2); CHLORIDE 103 mmol/L (98-107); COSMO 278; CREATININE 0.5 mg/dL (0.5-0.9); ESTIMATED GFR > 60; GLUCOSE 96 mg/dL (70-104); POTASSIUM 3.4 mmol/L (3.5-5.1); SODIUM 140 mmol/L (136-145); TCO2 23 mmol/L (25-35)
--- NOTE | 2019-06-06 08:28 | DISCHARGE SUMMARY ---
ADMISSION DATE: 06/05/2019 DISCHARGE DATE: 06/06/2019 HISTORY OF PRESENT ILLNESS: She presented with shortness of breath. A 63-year-old with a history of COPD, chronic pain, anxiety, who presented to the emergency department with a several-day history of having worsening shortness of breath. She was seen in the emergency room, somewhat dyspneic. Put on some supplementary oxygen. The patient is a poor historian. Was mostly sleepy and did not answer many questions. However, was able to deny having headache, nausea, vomiting, diarrhea, chest pain, or weight change. PAST MEDICAL HISTORY: Includes COPD, chronic pain, anxiety disorder. PAST SURGICAL HISTORY: Cyst removed from her chin. DIAGNOSTIC DATA: Her chest x-ray on 06/04/2019 was negative. Lungs were well-expanded. Heart was not enlarged. Vessels were not distended. There were no infiltrates, no effusion. The patient received a pulmonary arteriogram. No pulmonary emboli and no sign of infiltrate. HOSPITAL COURSE: The patient became much less lethargic and really did not want to be in the hospital. It was difficult time keeping her in her room. She pulled out her IVs and was insisting on going home. Looking at her home regimen for medicines, she is on gabapentin 600 mg t.i.d. I recommend she decrease that and have her stop her muscle relaxer which is methocarbamol 500 mg t.i.d. I kept her on her paroxetine. She takes hydrocodone at home and she has 5 mg at home which I recommend they she take at a minimum. She was not complaining of any pain while she was here. I will put her on Levaquin for another 5 days. Did not find any evidence of bacterial or viral infection. She needs to follow up with her primary care. cc: Sajan Milton MD
[2019-06-06] MEDS ORDERED: PAXIL PO SCH (09:00)
[2019-06-06] MEDS ORDERED: LEVAQUIN PO SCH (09:00)
== END 2019-06-06 09:23 | disposition home or self-care (01) | DRG 192 ==
LOC: ED 23:01 → SUATTDRO 06-05 05:37 → 4N 06-05 05:37
PROVIDERS: ATTEND Emergency Medicine